=== PATIENT | male | born 1950 | race Caucasian/White ===

== ENCOUNTER 2016-01-08 05:11 | Inpatient (IN) | payer MEDICAID, OTHER ==
[~2016-01-08] VITALS: Ht 182.9 cm; Wt 63.8 kg
[~2016-01-08 05:11] MED LIST: DIVA500T35 PO; DSS100 PO; FLUP10 PO; PANT40TA25 PO
[2016-01-08] MEDS ORDERED: AMMONIA 1 EA AMP IH ONE (05:21)
[2016-01-08 05:54] LABS: BASOPHILS # (AUTO) 0.05 K/uL (0.00-0.20); BASOPHILS % (AUTO) 0.8 % (0.0-2.0); EOSINOPHILS # (AUTO) 0.22 K/uL (0.00-0.70); EOSINOPHILS % (AUTO) 3.27 % (1.0-6.0); HEMOGLOBIN 13.4 g/dL (13.5-17.5); LYMPHOCYTES % (AUTO) 43.7 % (22.0-44.0); MEAN CORPUSCULAR HEMOGLOBIN 30.1 pg (26.0-34.0); MEAN CORPUSCULAR HGB CONC 32.6 G/dL (31.0-37.0); MEAN CORPUSCULAR VOLUME 93 fL (80-100); MONOCYTES # (AUTO) 0.6 K/uL (0.1-1.0); MONOCYTES % (AUTO) 8.5 % (2.0-9.0); NEUTROPHILS % (AUTO) 43.7 % (40.0-70.0); PLATELET COUNT (AUTO) 252 K/uL (150-450); RED BLOOD CELL COUNT(AUTO) 4.43 MIL/uL (4.50-5.90); RED CELL DISTRIBUTION WIDTH 13.6 % (11.5-14.5); WHITE BLOOD COUNT (AUTO) 6.8 K/uL (4.5-11.0)
[2016-01-08 06:05] LABS: ANION GAP 7 mmol/L (8-16); CALCIUM, TOTAL 8.7 mg/dL (8.8-10.5); CARBON DIOXIDE 29 mmol/L (22-29); CHLORIDE 105 mmol/L (98-107); CREATININE 0.72 mg/dL (0.60-1.30); GLOMERULAR FILTR. RATE CALC > 60 mL/min (>60); POTASSIUM 3.8 mmol/L (3.5-5.1); SODIUM SERUM 141 mmol/L (136-145); UREA NITROGEN, BLOOD 12 mg/dL (7-18)
[2016-01-08 06:20] LABS: AMMONIA < 10 umol/L (11-32); TROPONIN I < 0.02 ng/mL (0.00-0.05)
[2016-01-08 06:31] LABS: ALANINE AMINOTRANSFERASE 15 U/L (12-78); ALBUMIN 3.4 g/dL (3.4-5.0); ASPARTATE AMINOTRANSFERASE 17 U/L (15-37); BILIRUBIN,TOTAL 0.4 mg/dL (0.1-1.0); CREATINE KINASE MB 0.7 ng/mL (0-5); CREATINE KINASE, TOTAL 88 U/L (39-308); TOTAL PROTEIN, SERUM 6.6 g/dL (6.4-8.2)
[2016-01-08] MEDS ORDERED: BACITRACIN 0.9 GM PACKET OINTMENT TP ONE (06:45)
[2016-01-08] MEDS ORDERED: PERTUSS(ACELL),DIPH,TET VAC/PF 0.5 ML VIAL IM ONE (06:45)
[2016-01-08] MEDS ORDERED: ZOLPIDEM TARTRATE 10 MG TABLET PO PRN (08:30)
[2016-01-08] MEDS: HALOPERIDOL 5 MG TABLET PO PRN (17:52)
[2016-01-08] MEDS: LORazepam 2 MG TABLET PO PRN (17:52)
[2016-01-09] MEDS: HALOPERIDOL 5 MG TABLET PO PRN ×2 (07:47→17:28)
[2016-01-09] MEDS: LORazepam 2 MG TABLET PO PRN ×2 (07:47→17:27)
[2016-01-09] MEDS: DIVALPROEX SODIUM 500 MG DR TABLET PO SCH (09:39)
[2016-01-09 17:31] VITALS: BP 136/73
[2016-01-09] MEDS: FluPHENAZine HCL 10 MG TABLET PO SCH (20:38)
[2016-01-10] MEDS: HALOPERIDOL 5 MG TABLET PO PRN ×3 (02:36→14:58)
[2016-01-10] MEDS: LORazepam 2 MG TABLET PO PRN ×3 (02:36→14:58)
[2016-01-10] MEDS ORDERED: ONDANSETRON HCL 4 MG TABLET PO PRN (07:00)
[2016-01-10] MEDS ORDERED: CloNIDine HCL 0.1 MG TABLET PO PRN (07:00)
[2016-01-10] MEDS ORDERED: ALBUTEROL SULFATE HFA 90 MCG/PUFF 8 GM INHALER IH PRN (07:00)
[2016-01-10] MEDS ORDERED: BACITRACIN 28.4 GM OINTMENT TP PRN (07:00)
[2016-01-10] MEDS ORDERED: BENZOCAINE/MENTHOL LOZENGE [8 LOZENGES/PACKET] MM PRN (07:00)
[2016-01-10] MEDS ORDERED: ACETAMINOPHEN 325 MG TABLET PO PRN (07:00)
[2016-01-10] MEDS ORDERED: MAG HYDROX/AL HYDROX/SIMETH ES 30 ML SUSPENSION UDCUP PO PRN (07:00)
[2016-01-10] MEDS ORDERED: IBUPROFEN 600 MG TABLET PO PRN (07:00)
[2016-01-10] MEDS ORDERED: PETROLATUM,WHITE 71 GM JELLY TP PRN (07:00)
[2016-01-10] MEDS ORDERED: LOPERAMIDE HCL 2 MG CAPSULE PO PRN (07:00)
[2016-01-10] MEDS: DOCUSATE SODIUM 100 MG CAPSULE PO SCH ×2 (08:26→17:00)
[2016-01-10] MEDS: DIVALPROEX SODIUM 500 MG DR TABLET PO SCH ×2 (08:27→17:00)
[2016-01-10] MEDS: PANTOPRAZOLE SODIUM 40 MG DR TABLET PO SCH (08:27)
[2016-01-10 10:35] VITALS: BP 120/84
[2016-01-10] MEDS ORDERED: HALOPERIDOL LACTATE 5 MG/ML VIAL ONE (14:57)
[2016-01-10] MEDS ORDERED: LORazepam 2 MG/ML VIAL ONE (14:57)
[2016-01-10] MEDS ORDERED: HALOPERIDOL LACTATE 5 MG/ML VIAL IM ONE (15:00)
[2016-01-10] MEDS ORDERED: LORazepam 2 MG/ML VIAL IM ONE (15:00)
[2016-01-10 16:11] VITALS: BP 119/81
[2016-01-10] MEDS: FluPHENAZine HCL 10 MG TABLET PO SCH (21:20)
[2016-01-11 08:20] VITALS: BP 121/87
[2016-01-11] MEDS: DIVALPROEX SODIUM 500 MG DR TABLET PO SCH ×2 (09:16→18:16)
[2016-01-11] MEDS: PANTOPRAZOLE SODIUM 40 MG DR TABLET PO SCH (09:16)
[2016-01-11] MEDS: DOCUSATE SODIUM 100 MG CAPSULE PO SCH ×2 (09:17→18:16)
[2016-01-11] MEDS: HALOPERIDOL 5 MG TABLET PO PRN (09:17)
[2016-01-11] MEDS: LORazepam 2 MG TABLET PO PRN (09:17)
[2016-01-11 16:11] VITALS: BP 125/78
[2016-01-11] MEDS: FluPHENAZine HCL 10 MG TABLET PO SCH (22:17)
[2016-01-12] MEDS: HALOPERIDOL 5 MG TABLET PO PRN ×2 (08:28→16:40)
[2016-01-12] MEDS: LORazepam 2 MG TABLET PO PRN (08:28)
[2016-01-12] MEDS: PANTOPRAZOLE SODIUM 40 MG DR TABLET PO SCH (08:28)
[2016-01-12] MEDS: DIVALPROEX SODIUM 500 MG DR TABLET PO SCH ×2 (08:28→16:40)
[2016-01-12] MEDS: DOCUSATE SODIUM 100 MG CAPSULE PO SCH ×2 (08:28→16:40)
[2016-01-12] MEDS: FluPHENAZine HCL 10 MG TABLET PO SCH (21:46)
[2016-01-13 08:30] VITALS: BP 120/64
[2016-01-13] MEDS: PANTOPRAZOLE SODIUM 40 MG DR TABLET PO SCH (08:45)
[2016-01-13] MEDS: DOCUSATE SODIUM 100 MG CAPSULE PO SCH ×2 (08:45→16:20)
[2016-01-13] MEDS: DIVALPROEX SODIUM 500 MG DR TABLET PO SCH ×2 (08:45→16:19)
[2016-01-13] MEDS: LORazepam 2 MG TABLET PO PRN (16:20)
[2016-01-13] MEDS: FluPHENAZine HCL 10 MG TABLET PO SCH (20:23)
[2016-01-14 08:30] VITALS: BP 117/78
[2016-01-14] MEDS: PANTOPRAZOLE SODIUM 40 MG DR TABLET PO SCH (10:19)
[2016-01-14] MEDS: DOCUSATE SODIUM 100 MG CAPSULE PO SCH ×2 (10:19→16:44)
[2016-01-14] MEDS: DIVALPROEX SODIUM 500 MG DR TABLET PO SCH ×2 (10:19→16:44)
[2016-01-14 16:37] VITALS: BP 109/66
[2016-01-14] MEDS: HALOPERIDOL 5 MG TABLET PO PRN (16:44)
[2016-01-14] MEDS: LORazepam 2 MG TABLET PO PRN (16:44)
[2016-01-14] MEDS: FluPHENAZine HCL 10 MG TABLET PO SCH (21:31)
[2016-01-15] MEDS: DIVALPROEX SODIUM 500 MG DR TABLET PO SCH ×2 (09:17→17:32)
[2016-01-15] MEDS: LORazepam 2 MG TABLET PO PRN (09:18)
[2016-01-15] MEDS: HALOPERIDOL 5 MG TABLET PO PRN (09:18)
[2016-01-15] MEDS: PANTOPRAZOLE SODIUM 40 MG DR TABLET PO SCH (09:18)
[2016-01-15] MEDS: DOCUSATE SODIUM 100 MG CAPSULE PO SCH ×2 (09:18→17:31)
[2016-01-15 09:20] VITALS: BP 116/71
[2016-01-15 16:00] VITALS: BP 118/73
[2016-01-15] MEDS: FluPHENAZine HCL 10 MG TABLET PO SCH (20:20)
[2016-01-16] MEDS: PANTOPRAZOLE SODIUM 40 MG DR TABLET PO SCH (08:52)
[2016-01-16] MEDS: DOCUSATE SODIUM 100 MG CAPSULE PO SCH ×3 (08:52→17:00)
[2016-01-16] MEDS: DIVALPROEX SODIUM 500 MG DR TABLET PO SCH ×3 (08:52→17:00)
[2016-01-16] MEDS: LORazepam 2 MG TABLET PO PRN (17:02)
[2016-01-16] MEDS: FluPHENAZine HCL 10 MG TABLET PO SCH (21:23)
[2016-01-17] MEDS: DOCUSATE SODIUM 100 MG CAPSULE PO SCH ×2 (10:14→16:52)
[2016-01-17] MEDS: DIVALPROEX SODIUM 500 MG DR TABLET PO SCH ×2 (10:15→16:51)
[2016-01-17] MEDS: PANTOPRAZOLE SODIUM 40 MG DR TABLET PO SCH (10:15)
[2016-01-17 15:01] VITALS: BP 108/64
[2016-01-17] MEDS: FluPHENAZine HCL 5 MG TABLET PO SCH (20:10)
[2016-01-18 08:03] VITALS: BP 96/81
[2016-01-18] MEDS: DOCUSATE SODIUM 100 MG CAPSULE PO SCH ×2 (08:56→17:00)
[2016-01-18] MEDS: PANTOPRAZOLE SODIUM 40 MG DR TABLET PO SCH (08:56)
[2016-01-18] MEDS: DIVALPROEX SODIUM 500 MG DR TABLET PO SCH ×2 (08:56→17:00)
[2016-01-18 17:07] VITALS: BP 119/74
[2016-01-18] MEDS: HALOPERIDOL LACTATE 5 MG/ML VIAL IM PRN (20:40)
[2016-01-18] MEDS: FluPHENAZine HCL 5 MG TABLET PO SCH (20:50)
[2016-01-19 08:02] VITALS: BP 136/76
[2016-01-19] MEDS: PANTOPRAZOLE SODIUM 40 MG DR TABLET PO SCH (09:00)
[2016-01-19] MEDS: DOCUSATE SODIUM 100 MG CAPSULE PO SCH ×2 (09:00→17:43)
[2016-01-19] MEDS: DIVALPROEX SODIUM 500 MG DR TABLET PO SCH ×2 (09:00→17:44)
[2016-01-19 17:57] VITALS: BP 103/82
[2016-01-19] MEDS: FluPHENAZine HCL 5 MG TABLET PO SCH (20:32)
[2016-01-20 08:02] VITALS: BP 102/71
[2016-01-20] MEDS: DOCUSATE SODIUM 100 MG CAPSULE PO SCH ×2 (09:26→16:36)
[2016-01-20] MEDS: PANTOPRAZOLE SODIUM 40 MG DR TABLET PO SCH (09:26)
[2016-01-20] MEDS: DIVALPROEX SODIUM 500 MG DR TABLET PO SCH ×2 (09:27→16:36)
[2016-01-20] MEDS: FluPHENAZine HCL 5 MG TABLET PO SCH (21:33)
[2016-01-21 08:02] VITALS: BP 117/63
[2016-01-21] MEDS: PANTOPRAZOLE SODIUM 40 MG DR TABLET PO SCH (09:57)
[2016-01-21] MEDS: DOCUSATE SODIUM 100 MG CAPSULE PO SCH ×2 (09:57→17:00)
[2016-01-21] MEDS: DIVALPROEX SODIUM 500 MG DR TABLET PO SCH ×2 (09:57→17:00)
[2016-01-21] MEDS ORDERED: LORazepam 2 MG/ML VIAL ONE (16:06)
[2016-01-21] MEDS ORDERED: DiphenhydrAMINE HCL 50 MG/ML VIAL ONE (16:06)
[2016-01-21] MEDS ORDERED: HALOPERIDOL LACTATE 5 MG/ML VIAL IM ONE (16:15)
[2016-01-21] MEDS ORDERED: DiphenhydrAMINE HCL 50 MG/ML VIAL IM ONE ×2 (16:15→16:30)
[2016-01-21] MEDS ORDERED: LORazepam 2 MG/ML VIAL IM ONE ×2 (16:15→16:30)
[2016-01-21] MEDS: FluPHENAZine HCL 5 MG TABLET PO SCH (21:00)
[2016-01-22] MEDS: DIVALPROEX SODIUM 500 MG DR TABLET PO SCH ×2 (09:57→17:31)
[2016-01-22] MEDS: PANTOPRAZOLE SODIUM 40 MG DR TABLET PO SCH (09:57)
[2016-01-22] MEDS: DOCUSATE SODIUM 100 MG CAPSULE PO SCH ×2 (09:57→17:31)
[2016-01-22 10:24] VITALS: BP 114/70
[2016-01-22] MEDS: FluPHENAZine HCL 5 MG TABLET PO SCH (21:21)
[2016-01-23] MEDS: DOCUSATE SODIUM 100 MG CAPSULE PO SCH ×2 (09:00→17:00)
[2016-01-23] MEDS: DIVALPROEX SODIUM 500 MG DR TABLET PO SCH (09:00)
[2016-01-23] MEDS: PANTOPRAZOLE SODIUM 40 MG DR TABLET PO SCH (09:00)
[2016-01-23] MEDS ORDERED: LORazepam 2 MG/ML VIAL ONE (15:10)
[2016-01-23] MEDS ORDERED: DiphenhydrAMINE HCL 50 MG/ML VIAL ONE (15:10)
[2016-01-23] MEDS ORDERED: DiphenhydrAMINE HCL 50 MG/ML VIAL IM ONE (15:15)
[2016-01-23] MEDS ORDERED: HALOPERIDOL LACTATE 5 MG/ML VIAL IM ONE (15:15)
[2016-01-23] MEDS ORDERED: LORazepam 2 MG/ML VIAL IM ONE (15:15)
[2016-01-23] MEDS: VALPROIC ACID 250 MG/5 ML SYRUP UDCUP PO SCH (17:00)
[2016-01-23] MEDS: FluPHENAZine HCL 5 MG TABLET PO SCH (20:36)
[2016-01-24 08:00] VITALS: BP 103/74
[2016-01-24] MEDS: PANTOPRAZOLE SODIUM 40 MG DR TABLET PO SCH (08:23)
[2016-01-24] MEDS: LORazepam 2 MG TABLET PO PRN (08:23)
[2016-01-24] MEDS: HALOPERIDOL 5 MG TABLET PO PRN (08:23)
[2016-01-24] MEDS: DOCUSATE SODIUM 100 MG CAPSULE PO SCH ×2 (08:23→17:00)
[2016-01-24] MEDS: VALPROIC ACID 250 MG/5 ML SYRUP UDCUP PO SCH ×2 (09:00→17:00)
[2016-01-24] MEDS: FluPHENAZine HCL 5 MG TABLET PO SCH (21:54)
[2016-01-25] MEDS: VALPROIC ACID 250 MG/5 ML SYRUP UDCUP PO SCH ×2 (09:00→17:00)
[2016-01-25] MEDS: PANTOPRAZOLE SODIUM 40 MG DR TABLET PO SCH (09:00)
[2016-01-25] MEDS: DOCUSATE SODIUM 100 MG CAPSULE PO SCH ×2 (09:00→17:00)
[2016-01-25] MEDS: FluPHENAZine HCL 5 MG TABLET PO SCH (21:10)
[2016-01-26] MEDS: DOCUSATE SODIUM 100 MG CAPSULE PO SCH ×2 (08:34→17:00)
[2016-01-26] MEDS: LORazepam 2 MG TABLET PO PRN (08:34)
[2016-01-26] MEDS: HALOPERIDOL 5 MG TABLET PO PRN (08:34)
[2016-01-26] MEDS: VALPROIC ACID 250 MG/5 ML SYRUP UDCUP PO SCH ×2 (08:34→17:00)
[2016-01-26] MEDS: PANTOPRAZOLE SODIUM 40 MG DR TABLET PO SCH (08:34)
[2016-01-26 09:35] VITALS: BP 134/85
[2016-01-26] MEDS: FluPHENAZine HCL 5 MG TABLET PO SCH (21:36)
[2016-01-27] MEDS: VALPROIC ACID 250 MG/5 ML SYRUP UDCUP PO SCH ×2 (09:00→17:00)
[2016-01-27] MEDS: PANTOPRAZOLE SODIUM 40 MG DR TABLET PO SCH (09:00)
[2016-01-27] MEDS: DOCUSATE SODIUM 100 MG CAPSULE PO SCH ×2 (09:00→17:00)
[2016-01-27 09:29] VITALS: BP 132/98
[2016-01-27] MEDS: FluPHENAZine HCL 5 MG TABLET PO SCH (21:00)
[2016-01-27] MEDS: HALOPERIDOL LACTATE 5 MG/ML VIAL IM PRN (21:42)
[2016-01-28] MEDS: VALPROIC ACID 250 MG/5 ML SYRUP UDCUP PO SCH ×2 (07:51→17:00)
[2016-01-28] MEDS: DOCUSATE SODIUM 100 MG CAPSULE PO SCH ×2 (07:51→17:00)
[2016-01-28] MEDS: PANTOPRAZOLE SODIUM 40 MG DR TABLET PO SCH (07:52)
[2016-01-28 13:37] VITALS: BP 128/65
[2016-01-28] MEDS: FluPHENAZine HCL 5 MG TABLET PO SCH (21:00)
[2016-01-28] MEDS: HALOPERIDOL LACTATE 5 MG/ML VIAL IM PRN (21:58)
[2016-01-29] MEDS: PANTOPRAZOLE SODIUM 40 MG DR TABLET PO SCH (09:57)
[2016-01-29] MEDS: DOCUSATE SODIUM 100 MG CAPSULE PO SCH ×2 (09:57→17:00)
[2016-01-29] MEDS: VALPROIC ACID 250 MG/5 ML SYRUP UDCUP PO SCH ×2 (09:59→17:00)
[2016-01-29] MEDS: FluPHENAZine HCL 5 MG TABLET PO SCH (21:38)
[2016-01-30] MEDS: DOCUSATE SODIUM 100 MG CAPSULE PO SCH ×2 (09:14→17:00)
[2016-01-30] MEDS: PANTOPRAZOLE SODIUM 40 MG DR TABLET PO SCH (09:14)
[2016-01-30] MEDS: VALPROIC ACID 250 MG/5 ML SYRUP UDCUP PO SCH ×2 (09:14→17:00)
[2016-01-30] MEDS: HALOPERIDOL LACTATE 5 MG/ML VIAL IM PRN (20:55)
[2016-01-30] MEDS: FluPHENAZine HCL 10 MG TABLET PO SCH (20:55)
[2016-01-31] MEDS: VALPROIC ACID 250 MG/5 ML SYRUP UDCUP PO SCH ×2 (10:22→17:00)
[2016-01-31] MEDS: DOCUSATE SODIUM 100 MG CAPSULE PO SCH ×2 (10:22→17:00)
[2016-01-31] MEDS: PANTOPRAZOLE SODIUM 40 MG DR TABLET PO SCH (10:22)
[2016-01-31] MEDS: FluPHENAZine HCL 10 MG TABLET PO SCH (21:42)
[2016-02-01] MEDS: DOCUSATE SODIUM 100 MG CAPSULE PO SCH ×2 (08:45→17:00)
[2016-02-01] MEDS: PANTOPRAZOLE SODIUM 40 MG DR TABLET PO SCH (08:45)
[2016-02-01] MEDS: VALPROIC ACID 250 MG/5 ML SYRUP UDCUP PO SCH ×2 (08:45→17:00)
[2016-02-01 09:06] VITALS: BP 118/54
[2016-02-01] MEDS: FluPHENAZine HCL 10 MG TABLET PO SCH (21:21)
[2016-02-02] MEDS: DOCUSATE SODIUM 100 MG CAPSULE PO SCH ×2 (08:07→17:00)
[2016-02-02] MEDS: PANTOPRAZOLE SODIUM 40 MG DR TABLET PO SCH (08:07)
[2016-02-02] MEDS ORDERED: CloZAPine 25 MG TABLET PO SCH (09:00)
[2016-02-02] MEDS: VALPROIC ACID 250 MG/5 ML SYRUP UDCUP PO SCH ×2 (09:00→17:00)
[2016-02-02 11:04] LABS: BASOPHILS % (AUTO) 0.7 % (0.0-2.0); EOSINOPHILS % (AUTO) 3.5 % (1.0-6.0); HEMATOCRIT 38.2 % (41-53); HEMOGLOBIN 12.5 g/dL (13.5-17.5); LYMPHOCYTES # (AUTO) 2.4 K/uL (1.0-4.8); LYMPHOCYTES % (AUTO) 32.8 % (22.0-44.0); MEAN CORPUSCULAR HEMOGLOBIN 29.7 pg (26.0-34.0); MEAN CORPUSCULAR HGB CONC 32.7 G/dL (31.0-37.0); MEAN CORPUSCULAR VOLUME 91 fL (80-100); MONOCYTES # (AUTO) 0.6 K/uL (0.1-1.0); NEUTROPHILS # (AUTO) 3.9 K/uL (1.8-7.7); PLATELET COUNT (AUTO) 294 K/uL (150-450); RED CELL DISTRIBUTION WIDTH 14.1 % (11.5-14.5); WHITE BLOOD COUNT (AUTO) 7.2 K/uL (4.5-11.0)
[2016-02-02] MEDS: FluPHENAZine HCL 10 MG TABLET PO SCH (22:22)
[2016-02-03] MEDS ORDERED: CloZAPine 25 MG TABLET PO SCH ×2 (09:00→21:00)
[2016-02-03] MEDS: VALPROIC ACID 250 MG/5 ML SYRUP UDCUP PO SCH ×2 (09:00→17:00)
[2016-02-03] MEDS: DOCUSATE SODIUM 100 MG CAPSULE PO SCH ×2 (09:41→17:27)
[2016-02-03] MEDS: PANTOPRAZOLE SODIUM 40 MG DR TABLET PO SCH (09:43)
[2016-02-03] MEDS: FluPHENAZine HCL 10 MG TABLET PO SCH (21:49)
[2016-02-04] MEDS ORDERED: CloZAPine 25 MG TABLET PO SCH ×2 (09:00→21:00)
[2016-02-04] MEDS: VALPROIC ACID 250 MG/5 ML SYRUP UDCUP PO SCH ×2 (09:00→17:00)
[2016-02-04] MEDS: PANTOPRAZOLE SODIUM 40 MG DR TABLET PO SCH (09:38)
[2016-02-04] MEDS: DOCUSATE SODIUM 100 MG CAPSULE PO SCH ×2 (09:39→17:00)
[2016-02-04] MEDS: FluPHENAZine HCL 10 MG TABLET PO SCH (21:39)
[2016-02-05] MEDS: CloZAPine 25 MG TABLET PO SCH ×2 (08:12→20:42)
[2016-02-05] MEDS: DOCUSATE SODIUM 100 MG CAPSULE PO SCH ×2 (08:12→17:00)
[2016-02-05] MEDS: PANTOPRAZOLE SODIUM 40 MG DR TABLET PO SCH (08:13)
[2016-02-05] MEDS: VALPROIC ACID 250 MG/5 ML SYRUP UDCUP PO SCH ×2 (08:13→17:00)
[2016-02-05] MEDS: LORazepam 2 MG TABLET PO PRN (08:14)
[2016-02-05] MEDS: HALOPERIDOL 5 MG TABLET PO PRN (08:14)
[2016-02-05] MEDS: FluPHENAZine HCL 10 MG TABLET PO SCH (20:42)
[2016-02-06] MEDS: VALPROIC ACID 250 MG/5 ML SYRUP UDCUP PO SCH ×2 (10:32→17:00)
[2016-02-06] MEDS: DOCUSATE SODIUM 100 MG CAPSULE PO SCH ×2 (10:33→17:00)
[2016-02-06] MEDS: PANTOPRAZOLE SODIUM 40 MG DR TABLET PO SCH (10:33)
[2016-02-06] MEDS: CloZAPine 25 MG TABLET PO SCH ×2 (10:33→21:56)
[2016-02-06] MEDS: FluPHENAZine HCL 10 MG TABLET PO SCH (21:56)
[2016-02-07] MEDS ORDERED: LORazepam 2 MG/ML VIAL ONE (01:56)
[2016-02-07] MEDS ORDERED: DiphenhydrAMINE HCL 50 MG/ML VIAL ONE (01:58)
[2016-02-07] MEDS ORDERED: HALOPERIDOL LACTATE 5 MG/ML VIAL IM ONE (02:00)
[2016-02-07] MEDS ORDERED: DiphenhydrAMINE HCL 50 MG/ML VIAL IM ONE (02:00)
[2016-02-07] MEDS ORDERED: LORazepam 2 MG/ML VIAL IM ONE (02:00)
[2016-02-07 02:24] VITALS: BP 104/68
[2016-02-07] MEDS ORDERED: CloZAPine 25 MG TABLET PO SCH (09:00)
[2016-02-07] MEDS: VALPROIC ACID 250 MG/5 ML SYRUP UDCUP PO SCH ×2 (09:00→17:00)
[2016-02-07] MEDS: DOCUSATE SODIUM 100 MG CAPSULE PO SCH ×2 (10:28→17:00)
[2016-02-07] MEDS: HALOPERIDOL 5 MG TABLET PO PRN (10:29)
[2016-02-07] MEDS: LORazepam 2 MG TABLET PO PRN (10:29)
[2016-02-07] MEDS: PANTOPRAZOLE SODIUM 40 MG DR TABLET PO SCH (10:29)
[2016-02-07] MEDS: FluPHENAZine HCL 10 MG TABLET PO SCH (21:00)
[2016-02-07] MEDS ORDERED: CloZAPine 100 MG TABLET PO SCH (21:00)
[2016-02-07] MEDS: HALOPERIDOL LACTATE 5 MG/ML VIAL IM PRN (21:28)
[2016-02-08] MEDS: DOCUSATE SODIUM 100 MG CAPSULE PO SCH ×2 (09:00→17:00)
[2016-02-08] MEDS: PANTOPRAZOLE SODIUM 40 MG DR TABLET PO SCH (09:00)
[2016-02-08] MEDS ORDERED: CloZAPine 25 MG TABLET PO SCH (09:00)
[2016-02-08] MEDS: VALPROIC ACID 250 MG/5 ML SYRUP UDCUP PO SCH ×2 (09:00→17:00)
[2016-02-08 13:36] LABS: APPEARANCE,URINE CLEAR (CLEAR); GLUCOSE, URINE (UA) NEGATIVE (NEGATIVE); KETONES,URINE NEGATIVE (NEGATIVE); LEUKOCYTE ESTERASE ,URINE NEGATIVE (NEGATIVE); OCCULT BLOOD,URINE NEGATIVE (NEGATIVE); PROTEIN,URINE NEGATIVE (NEGATIVE)
[2016-02-08 13:37] LABS: ADD UA MICROSCOPIC NO
[2016-02-08] MEDS: FluPHENAZine HCL 10 MG TABLET PO SCH (20:56)
[2016-02-08] MEDS ORDERED: CloZAPine 100 MG TABLET PO SCH (21:00)
[2016-02-08] MEDS: HALOPERIDOL LACTATE 5 MG/ML VIAL IM PRN (21:00)
[2016-02-09] MEDS: VALPROIC ACID 250 MG/5 ML SYRUP UDCUP PO SCH ×2 (08:57→16:58)
[2016-02-09] MEDS: DOCUSATE SODIUM 100 MG CAPSULE PO SCH ×2 (08:58→16:58)
[2016-02-09] MEDS: PANTOPRAZOLE SODIUM 40 MG DR TABLET PO SCH (08:59)
[2016-02-09] MEDS ORDERED: CloZAPine 25 MG TABLET PO SCH (09:00)
[2016-02-09 10:02] LABS: BASOPHILS % (AUTO) 0.6 % (0.0-2.0); EOSINOPHILS % (AUTO) 2.2 % (1.0-6.0); HEMATOCRIT 38.3 % (41-53); HEMOGLOBIN 12.7 g/dL (13.5-17.5); LYMPHOCYTES # (AUTO) 1.9 K/uL (1.0-4.8); MEAN CORPUSCULAR HEMOGLOBIN 29.5 pg (26.0-34.0); MEAN CORPUSCULAR VOLUME 89 fL (80-100); MONOCYTES # (AUTO) 0.7 K/uL (0.1-1.0); MONOCYTES % (AUTO) 8.8 % (2.0-9.0); NEUTROPHILS # (AUTO) 5.6 K/uL (1.8-7.7); NEUTROPHILS % (AUTO) 66.4 % (40.0-70.0); PLATELET COUNT (AUTO) 345 K/uL (150-450); RED BLOOD CELL COUNT(AUTO) 4.28 MIL/uL (4.50-5.90); RED CELL DISTRIBUTION WIDTH 13.6 % (11.5-14.5); WHITE BLOOD COUNT (AUTO) 8.5 K/uL (4.5-11.0)
[2016-02-09] MEDS ORDERED: CloZAPine 100 MG TABLET PO SCH (21:00)
[2016-02-09] MEDS: FluPHENAZine HCL 10 MG TABLET PO SCH (21:00)
[2016-02-09] MEDS: HALOPERIDOL LACTATE 5 MG/ML VIAL IM PRN (22:44)
[2016-02-10] MEDS: PANTOPRAZOLE SODIUM 40 MG DR TABLET PO SCH (12:13)
[2016-02-10] MEDS: CloZAPine 100 MG TABLET PO SCH ×2 (12:13→21:00)
[2016-02-10] MEDS: DOCUSATE SODIUM 100 MG CAPSULE PO SCH ×2 (12:13→17:00)
[2016-02-10] MEDS: VALPROIC ACID 250 MG/5 ML SYRUP UDCUP PO SCH ×2 (12:14→17:00)
[2016-02-10] MEDS: FluPHENAZine HCL 10 MG TABLET PO SCH (21:00)
[2016-02-10] MEDS: HALOPERIDOL LACTATE 5 MG/ML VIAL IM PRN (21:34)
[2016-02-11] MEDS: DOCUSATE SODIUM 100 MG CAPSULE PO SCH ×2 (08:55→16:25)
[2016-02-11] MEDS: PANTOPRAZOLE SODIUM 40 MG DR TABLET PO SCH (08:55)
[2016-02-11] MEDS: CloZAPine 100 MG TABLET PO SCH ×2 (08:55→21:09)
[2016-02-11] MEDS: VALPROIC ACID 250 MG/5 ML SYRUP UDCUP PO SCH ×2 (09:00→16:25)
[2016-02-11] MEDS: MAGNESIUM HYDROXIDE SUSPENSION 30 ML UDCUP PO PRN (14:28)
[2016-02-11] MEDS: FluPHENAZine HCL 10 MG TABLET PO SCH (21:10)
[2016-02-12] MEDS ORDERED: CloZAPine 25 MG TABLET PO SCH (09:00)
[2016-02-12] MEDS: DOCUSATE SODIUM 100 MG CAPSULE PO SCH ×2 (09:20→17:45)
[2016-02-12] MEDS: PANTOPRAZOLE SODIUM 40 MG DR TABLET PO SCH (09:20)
[2016-02-12] MEDS: VALPROIC ACID 250 MG/5 ML SYRUP UDCUP PO SCH ×2 (09:21→17:45)
[2016-02-12] MEDS ORDERED: CloZAPine 100 MG TABLET PO SCH (21:00)
[2016-02-12] MEDS: FluPHENAZine HCL 10 MG TABLET PO SCH (21:42)
[2016-02-13] MEDS: VALPROIC ACID 250 MG/5 ML SYRUP UDCUP PO SCH ×2 (09:00→17:49)
[2016-02-13] MEDS ORDERED: CloZAPine 25 MG TABLET PO SCH (09:00)
[2016-02-13] MEDS: PANTOPRAZOLE SODIUM 40 MG DR TABLET PO SCH (09:00)
[2016-02-13] MEDS: DOCUSATE SODIUM 100 MG CAPSULE PO SCH ×2 (09:00→17:49)
[2016-02-13] MEDS ORDERED: CloZAPine 100 MG TABLET PO SCH (21:00)
[2016-02-13] MEDS: FluPHENAZine HCL 10 MG TABLET PO SCH (22:09)
[2016-02-14] MEDS: VALPROIC ACID 250 MG/5 ML SYRUP UDCUP PO SCH ×2 (09:00→17:00)
[2016-02-14] MEDS: CloZAPine 100 MG TABLET PO SCH ×2 (10:25→20:06)
[2016-02-14] MEDS: PANTOPRAZOLE SODIUM 40 MG DR TABLET PO SCH (10:35)
[2016-02-14] MEDS: DOCUSATE SODIUM 100 MG CAPSULE PO SCH ×2 (10:35→17:00)
[2016-02-14] MEDS: FluPHENAZine HCL 10 MG TABLET PO SCH (20:06)
[2016-02-15] MEDS: VALPROIC ACID 250 MG/5 ML SYRUP UDCUP PO SCH ×3 (09:00→17:43)
[2016-02-15] MEDS: DOCUSATE SODIUM 100 MG CAPSULE PO SCH ×3 (09:14→17:43)
[2016-02-15] MEDS: CloZAPine 100 MG TABLET PO SCH ×3 (09:14→20:48)
[2016-02-15] MEDS: PANTOPRAZOLE SODIUM 40 MG DR TABLET PO SCH ×2 (09:14→09:59)
[2016-02-15] MEDS: FluPHENAZine HCL 10 MG TABLET PO SCH (20:48)
[2016-02-16 07:44] LABS: BASOPHILS % (AUTO) 0.6 % (0.0-2.0); EOSINOPHILS % (AUTO) 4.4 % (1.0-6.0); HEMATOCRIT 38.1 % (41-53); HEMOGLOBIN 12.5 g/dL (13.5-17.5); LYMPHOCYTES # (AUTO) 2.7 K/uL (1.0-4.8); LYMPHOCYTES % (AUTO) 32.2 % (22.0-44.0); MEAN CORPUSCULAR HEMOGLOBIN 29.5 pg (26.0-34.0); MEAN CORPUSCULAR HGB CONC 32.9 G/dL (31.0-37.0); MEAN CORPUSCULAR VOLUME 90 fL (80-100); MONOCYTES # (AUTO) 0.6 K/uL (0.1-1.0); MONOCYTES % (AUTO) 6.5 % (2.0-9.0); NEUTROPHILS # (AUTO) 4.8 K/uL (1.8-7.7); NEUTROPHILS % (AUTO) 56.3 % (40.0-70.0); PLATELET COUNT (AUTO) 366 K/uL (150-450); RED BLOOD CELL COUNT(AUTO) 4.24 MIL/uL (4.50-5.90); RED CELL DISTRIBUTION WIDTH 13.4 % (11.5-14.5); WHITE BLOOD COUNT (AUTO) 8.5 K/uL (4.5-11.0)
[2016-02-16] MEDS: VALPROIC ACID 250 MG/5 ML SYRUP UDCUP PO SCH ×2 (09:00→17:00)
[2016-02-16] MEDS: DOCUSATE SODIUM 100 MG CAPSULE PO SCH ×2 (09:04→17:00)
[2016-02-16] MEDS: CloZAPine 100 MG TABLET PO SCH ×2 (09:04→22:16)
[2016-02-16] MEDS: PANTOPRAZOLE SODIUM 40 MG DR TABLET PO SCH (09:05)
[2016-02-16 16:24] VITALS: BP 125/76
[2016-02-16] MEDS: FluPHENAZine HCL 10 MG TABLET PO SCH (22:16)
[2016-02-17] MEDS: DOCUSATE SODIUM 100 MG CAPSULE PO SCH ×2 (08:44→17:30)
[2016-02-17] MEDS: PANTOPRAZOLE SODIUM 40 MG DR TABLET PO SCH (08:45)
[2016-02-17] MEDS: CloZAPine 100 MG TABLET PO SCH ×2 (08:45→21:01)
[2016-02-17] MEDS: VALPROIC ACID 250 MG/5 ML SYRUP UDCUP PO SCH ×2 (08:59→17:30)
[2016-02-17] MEDS: FluPHENAZine HCL 10 MG TABLET PO SCH (21:00)
[2016-02-17] MEDS: HALOPERIDOL LACTATE 5 MG/ML VIAL IM PRN (21:01)
[2016-02-18] MEDS: VALPROIC ACID 250 MG/5 ML SYRUP UDCUP PO SCH ×2 (09:00→17:41)
[2016-02-18] MEDS: PANTOPRAZOLE SODIUM 40 MG DR TABLET PO SCH (09:26)
[2016-02-18] MEDS: DOCUSATE SODIUM 100 MG CAPSULE PO SCH ×2 (09:26→17:42)
[2016-02-18] MEDS: CloZAPine 100 MG TABLET PO SCH ×2 (09:26→21:00)
[2016-02-18] MEDS: FluPHENAZine HCL 10 MG TABLET PO SCH (21:00)
[2016-02-18] MEDS: HALOPERIDOL LACTATE 5 MG/ML VIAL IM PRN (21:08)
[2016-02-19] MEDS: VALPROIC ACID 250 MG/5 ML SYRUP UDCUP PO SCH ×2 (09:06→17:00)
[2016-02-19] MEDS: PANTOPRAZOLE SODIUM 40 MG DR TABLET PO SCH (09:06)
[2016-02-19] MEDS: CloZAPine 100 MG TABLET PO SCH ×2 (09:06→21:00)
[2016-02-19] MEDS: DOCUSATE SODIUM 100 MG CAPSULE PO SCH ×2 (09:06→17:00)
[2016-02-19] MEDS: HALOPERIDOL LACTATE 5 MG/ML VIAL IM PRN (20:10)
[2016-02-19] MEDS: FluPHENAZine HCL 10 MG TABLET PO SCH (21:00)
[2016-02-20] MEDS: CloZAPine 100 MG TABLET PO SCH ×2 (09:38→21:00)
[2016-02-20] MEDS: DOCUSATE SODIUM 100 MG CAPSULE PO SCH ×3 (09:38→17:30)
[2016-02-20] MEDS: VALPROIC ACID 250 MG/5 ML SYRUP UDCUP PO SCH ×2 (09:38→17:00)
[2016-02-20] MEDS: PANTOPRAZOLE SODIUM 40 MG DR TABLET PO SCH (09:38)
[2016-02-20] MEDS: FluPHENAZine HCL 10 MG TABLET PO SCH (21:00)
[2016-02-20] MEDS: HALOPERIDOL LACTATE 5 MG/ML VIAL IM PRN (22:29)
[2016-02-21] MEDS: PANTOPRAZOLE SODIUM 40 MG DR TABLET PO SCH (08:53)
[2016-02-21] MEDS: CloZAPine 100 MG TABLET PO SCH (08:53)
[2016-02-21] MEDS: DOCUSATE SODIUM 100 MG CAPSULE PO SCH ×2 (08:53→17:39)
[2016-02-21] MEDS: VALPROIC ACID 250 MG/5 ML SYRUP UDCUP PO SCH ×2 (08:53→09:00)
[2016-02-21 12:22] LABS: CLOZAPINE 128 ng/mL (350-650); CLOZAPINE & NORCLOZAPINE 152 ng/mL; NORCLOZAPINE 24 ng/mL (Not Estab.)
[2016-02-21] MEDS: DIVALPROEX SODIUM 500 MG DR TABLET PO SCH (17:39)
[2016-02-21 18:13] VITALS: BP 116/72
[2016-02-21] MEDS: FluPHENAZine HCL 10 MG TABLET PO SCH (20:25)
[2016-02-21] MEDS: CloZAPine 100 MG RAPDIS TABLET PO SCH (20:25)
[2016-02-22 06:15] LABS: ANION GAP 4 mmol/L (8-16); CARBON DIOXIDE 34 mmol/L (22-29); CHLORIDE 104 mmol/L (98-107); CREATININE 0.66 mg/dL (0.60-1.30); GLOMERULAR FILTR. RATE CALC > 60 mL/min (>60); POTASSIUM 4.8 mmol/L (3.5-5.1); SODIUM SERUM 142 mmol/L (136-145); UREA NITROGEN, BLOOD 19 mg/dL (7-18)
[2016-02-22 06:26] LABS: IRON, SERUM 48 mcg/dL (50-175); TOTAL IRON BINDING CAPACITY 259 mcg/dL (250-450)
[2016-02-22] MEDS: MULTIVITAMINS WITH MINERALS, THERAPEUTIC TABLET PO SCH (08:49)
[2016-02-22] MEDS: PANTOPRAZOLE SODIUM 40 MG DR TABLET PO SCH (08:50)
[2016-02-22] MEDS: DOCUSATE SODIUM 100 MG CAPSULE PO SCH ×2 (08:50→18:05)
[2016-02-22] MEDS: DIVALPROEX SODIUM 500 MG DR TABLET PO SCH ×2 (08:50→18:05)
[2016-02-22] MEDS: CloZAPine 100 MG RAPDIS TABLET PO SCH ×2 (08:50→21:05)
[2016-02-22] MEDS: FluPHENAZine HCL 10 MG TABLET PO SCH (21:05)
[2016-02-23] MEDS: HALOPERIDOL 5 MG TABLET PO PRN (09:33)
[2016-02-23] MEDS: DIVALPROEX SODIUM 500 MG DR TABLET PO SCH ×2 (09:33→16:54)
[2016-02-23] MEDS: PANTOPRAZOLE SODIUM 40 MG DR TABLET PO SCH (09:33)
[2016-02-23] MEDS: DOCUSATE SODIUM 100 MG CAPSULE PO SCH ×2 (09:33→16:54)
[2016-02-23] MEDS: MULTIVITAMINS WITH MINERALS, THERAPEUTIC TABLET PO SCH (09:33)
[2016-02-23] MEDS: CloZAPine 100 MG RAPDIS TABLET PO SCH ×2 (09:34→22:18)
[2016-02-23 16:31] LABS: BASOPHILS % (AUTO) 1.7 % (0.0-2.0); EOSINOPHILS % (AUTO) 1.9 % (1.0-6.0); HEMATOCRIT 36.9 % (41-53); HEMOGLOBIN 11.9 g/dL (13.5-17.5); LYMPHOCYTES # (AUTO) 2.7 K/uL (1.0-4.8); LYMPHOCYTES % (AUTO) 35.6 % (22.0-44.0); MEAN CORPUSCULAR HEMOGLOBIN 28.7 pg (26.0-34.0); MEAN CORPUSCULAR HGB CONC 32.2 G/dL (31.0-37.0); MEAN CORPUSCULAR VOLUME 89 fL (80-100); MONOCYTES # (AUTO) 0.5 K/uL (0.1-1.0); MONOCYTES % (AUTO) 7.1 % (2.0-9.0); NEUTROPHILS % (AUTO) 53.7 % (40.0-70.0); PLATELET COUNT (AUTO) 305 K/uL (150-450); RED BLOOD CELL COUNT(AUTO) 4.13 MIL/uL (4.50-5.90); RED CELL DISTRIBUTION WIDTH 13.7 % (11.5-14.5); WHITE BLOOD COUNT (AUTO) 7.5 K/uL (4.5-11.0)
[2016-02-23] MEDS: FluPHENAZine HCL 10 MG TABLET PO SCH (22:18)
[2016-02-24] MEDS: HALOPERIDOL 5 MG TABLET PO PRN (09:59)
[2016-02-24] MEDS: CloZAPine 100 MG RAPDIS TABLET PO SCH ×2 (09:59→20:32)
[2016-02-24] MEDS: DIVALPROEX SODIUM 500 MG DR TABLET PO SCH ×2 (09:59→17:55)
[2016-02-24] MEDS: DOCUSATE SODIUM 100 MG CAPSULE PO SCH ×2 (09:59→17:55)
[2016-02-24] MEDS: MULTIVITAMINS WITH MINERALS, THERAPEUTIC TABLET PO SCH (09:59)
[2016-02-24] MEDS: PANTOPRAZOLE SODIUM 40 MG DR TABLET PO SCH (09:59)
[2016-02-24] MEDS: FluPHENAZine HCL 10 MG TABLET PO SCH (20:32)
[2016-02-25] MEDS: HALOPERIDOL 5 MG TABLET PO PRN (09:41)
[2016-02-25] MEDS: DIVALPROEX SODIUM 500 MG DR TABLET PO SCH ×2 (09:41→17:48)
[2016-02-25] MEDS: PANTOPRAZOLE SODIUM 40 MG DR TABLET PO SCH (09:41)
[2016-02-25] MEDS: CloZAPine 100 MG RAPDIS TABLET PO SCH ×2 (09:41→21:00)
[2016-02-25] MEDS: MULTIVITAMINS WITH MINERALS, THERAPEUTIC TABLET PO SCH (09:41)
[2016-02-25] MEDS: DOCUSATE SODIUM 100 MG CAPSULE PO SCH ×2 (09:42→17:48)
[2016-02-25] MEDS: FluPHENAZine HCL 10 MG TABLET PO SCH (20:58)
[2016-02-26] MEDS: CloZAPine 100 MG RAPDIS TABLET PO SCH ×2 (08:43→21:27)
[2016-02-26] MEDS: DIVALPROEX SODIUM 500 MG DR TABLET PO SCH ×2 (08:44→17:29)
[2016-02-26] MEDS: DOCUSATE SODIUM 100 MG CAPSULE PO SCH ×2 (08:44→17:29)
[2016-02-26] MEDS: MULTIVITAMINS WITH MINERALS, THERAPEUTIC TABLET PO SCH (08:45)
[2016-02-26] MEDS: PANTOPRAZOLE SODIUM 40 MG DR TABLET PO SCH (08:45)
[2016-02-26] MEDS: FluPHENAZine HCL 10 MG TABLET PO SCH (21:27)
[2016-02-27] MEDS: MULTIVITAMINS WITH MINERALS, THERAPEUTIC TABLET PO SCH (08:51)
[2016-02-27] MEDS: DIVALPROEX SODIUM 500 MG DR TABLET PO SCH ×2 (08:51→17:00)
[2016-02-27] MEDS: CloZAPine 100 MG RAPDIS TABLET PO SCH ×2 (08:51→20:32)
[2016-02-27] MEDS: PANTOPRAZOLE SODIUM 40 MG DR TABLET PO SCH (08:51)
[2016-02-27] MEDS: DOCUSATE SODIUM 100 MG CAPSULE PO SCH ×2 (08:52→17:00)
[2016-02-27] MEDS: FluPHENAZine HCL 10 MG TABLET PO SCH (20:32)
[2016-02-28 08:30] VITALS: BP 109/68
[2016-02-28] MEDS: DOCUSATE SODIUM 100 MG CAPSULE PO SCH ×2 (10:24→16:46)
[2016-02-28] MEDS: CloZAPine 100 MG RAPDIS TABLET PO SCH ×2 (10:24→20:55)
[2016-02-28] MEDS: DIVALPROEX SODIUM 500 MG DR TABLET PO SCH ×2 (10:24→16:46)
[2016-02-28] MEDS: MULTIVITAMINS WITH MINERALS, THERAPEUTIC TABLET PO SCH (10:24)
[2016-02-28] MEDS: PANTOPRAZOLE SODIUM 40 MG DR TABLET PO SCH (10:24)
[2016-02-28] MEDS: FluPHENAZine HCL 10 MG TABLET PO SCH (20:55)
[2016-02-29] MEDS: DOCUSATE SODIUM 100 MG CAPSULE PO SCH ×2 (08:35→17:00)
[2016-02-29] MEDS: DIVALPROEX SODIUM 500 MG DR TABLET PO SCH ×2 (08:36→17:00)
[2016-02-29] MEDS: MULTIVITAMINS WITH MINERALS, THERAPEUTIC TABLET PO SCH (08:36)
[2016-02-29] MEDS: PANTOPRAZOLE SODIUM 40 MG DR TABLET PO SCH (08:36)
[2016-02-29] MEDS: CloZAPine 100 MG RAPDIS TABLET PO SCH ×2 (08:36→21:53)
[2016-02-29] MEDS: FluPHENAZine HCL 10 MG TABLET PO SCH (21:53)
[2016-03-01 06:12] LABS: BASOPHILS % (AUTO) 0.6 % (0.0-2.0); EOSINOPHILS % (AUTO) 3.8 % (1.0-6.0); HEMATOCRIT 36.4 % (41-53); HEMOGLOBIN 12.1 g/dL (13.5-17.5); LYMPHOCYTES # (AUTO) 2.6 K/uL (1.0-4.8); LYMPHOCYTES % (AUTO) 34.5 % (22.0-44.0); MEAN CORPUSCULAR HEMOGLOBIN 29.3 pg (26.0-34.0); MEAN CORPUSCULAR HGB CONC 33.1 G/dL (31.0-37.0); MEAN CORPUSCULAR VOLUME 88 fL (80-100); MONOCYTES # (AUTO) 0.6 K/uL (0.1-1.0); MONOCYTES % (AUTO) 7.4 % (2.0-9.0); NEUTROPHILS # (AUTO) 4.1 K/uL (1.8-7.7); NEUTROPHILS % (AUTO) 53.7 % (40.0-70.0); PLATELET COUNT (AUTO) 287 K/uL (150-450); RED BLOOD CELL COUNT(AUTO) 4.11 MIL/uL (4.50-5.90); RED CELL DISTRIBUTION WIDTH 13.6 % (11.5-14.5); WHITE BLOOD COUNT (AUTO) 7.7 K/uL (4.5-11.0)
[2016-03-01] MEDS: CloZAPine 100 MG RAPDIS TABLET PO SCH ×2 (09:01→20:50)
[2016-03-01] MEDS: PANTOPRAZOLE SODIUM 40 MG DR TABLET PO SCH (09:02)
[2016-03-01] MEDS: MULTIVITAMINS WITH MINERALS, THERAPEUTIC TABLET PO SCH (09:02)
[2016-03-01] MEDS: DIVALPROEX SODIUM 500 MG DR TABLET PO SCH ×2 (09:02→17:03)
[2016-03-01] MEDS: DOCUSATE SODIUM 100 MG CAPSULE PO SCH ×2 (09:02→17:03)
[2016-03-01] MEDS: FluPHENAZine HCL 10 MG TABLET PO SCH (20:50)
[2016-03-02] MEDS: DIVALPROEX SODIUM 500 MG DR TABLET PO SCH ×2 (10:16→17:00)
[2016-03-02] MEDS: MULTIVITAMINS WITH MINERALS, THERAPEUTIC TABLET PO SCH (10:16)
[2016-03-02] MEDS: PANTOPRAZOLE SODIUM 40 MG DR TABLET PO SCH (10:16)
[2016-03-02] MEDS: DOCUSATE SODIUM 100 MG CAPSULE PO SCH ×2 (10:17→17:00)
[2016-03-02] MEDS: CloZAPine 100 MG RAPDIS TABLET PO SCH ×2 (10:17→21:00)
[2016-03-02] MEDS: FluPHENAZine HCL 10 MG TABLET PO SCH (21:00)
[2016-03-02] MEDS: HALOPERIDOL LACTATE 5 MG/ML VIAL IM PRN (21:06)
[2016-03-03] MEDS: MULTIVITAMINS WITH MINERALS, THERAPEUTIC TABLET PO SCH (09:00)
[2016-03-03] MEDS: PANTOPRAZOLE SODIUM 40 MG DR TABLET PO SCH (09:00)
[2016-03-03] MEDS ORDERED: CloZAPine 100 MG RAPDIS TABLET PO SCH (09:00)
[2016-03-03] MEDS: DOCUSATE SODIUM 100 MG CAPSULE PO SCH ×2 (09:00→16:58)
[2016-03-03] MEDS: CloZAPine 25 MG RAPDIS TABLET PO SCH (09:53)
[2016-03-03] MEDS: CloZAPine 100 MG RAPDIS TABLET PO SCH ×2 (09:53→20:21)
[2016-03-03] MEDS: DIVALPROEX SODIUM 500 MG DR TABLET PO SCH ×2 (09:53→16:58)
[2016-03-03] MEDS: FluPHENAZine HCL 10 MG TABLET PO SCH (20:21)
[2016-03-03] MEDS: HALOPERIDOL LACTATE 5 MG/ML VIAL IM PRN (20:22)
[2016-03-04] MEDS: CloZAPine 100 MG RAPDIS TABLET PO SCH ×2 (12:52→20:27)
[2016-03-04] MEDS: DIVALPROEX SODIUM 500 MG DR TABLET PO SCH ×2 (12:52→16:47)
[2016-03-04] MEDS: CloZAPine 25 MG RAPDIS TABLET PO SCH (12:54)
[2016-03-04] MEDS: MULTIVITAMINS WITH MINERALS, THERAPEUTIC TABLET PO SCH (12:55)
[2016-03-04] MEDS: PANTOPRAZOLE SODIUM 40 MG DR TABLET PO SCH (12:57)
[2016-03-04] MEDS: DOCUSATE SODIUM 100 MG CAPSULE PO SCH ×2 (13:00→16:47)
[2016-03-04] MEDS: FluPHENAZine HCL 10 MG TABLET PO SCH (20:27)
[2016-03-04] MEDS: HALOPERIDOL LACTATE 5 MG/ML VIAL IM PRN (20:33)
[2016-03-05] MEDS: MAGNESIUM HYDROXIDE SUSPENSION 30 ML UDCUP PO PRN (08:10)
[2016-03-05] MEDS: DOCUSATE SODIUM 100 MG CAPSULE PO SCH ×2 (08:22→16:51)
[2016-03-05] MEDS: HALOPERIDOL LACTATE 5 MG/ML VIAL IM PRN (08:22)
[2016-03-05] MEDS: PANTOPRAZOLE SODIUM 40 MG DR TABLET PO SCH (08:23)
[2016-03-05] MEDS: CloZAPine 100 MG RAPDIS TABLET PO SCH ×2 (08:23→20:53)
[2016-03-05] MEDS: DIVALPROEX SODIUM 500 MG DR TABLET PO SCH ×2 (08:23→16:56)
[2016-03-05] MEDS: MULTIVITAMINS WITH MINERALS, THERAPEUTIC TABLET PO SCH (08:23)
[2016-03-05] MEDS: CloZAPine 25 MG RAPDIS TABLET PO SCH (08:23)
[2016-03-05 10:07] VITALS: BP 122/73
[2016-03-05 10:14] LABS: CLOZAPINE 83 ng/mL (350-650); CLOZAPINE & NORCLOZAPINE 117 ng/mL; NORCLOZAPINE 34 ng/mL (Not Estab.)
[2016-03-05] MEDS: FluPHENAZine HCL 10 MG TABLET PO SCH (20:53)
[2016-03-06] MEDS: DOCUSATE SODIUM 100 MG CAPSULE PO SCH ×2 (09:18→16:55)
[2016-03-06] MEDS: DIVALPROEX SODIUM 500 MG DR TABLET PO SCH ×2 (09:18→16:55)
[2016-03-06] MEDS: PANTOPRAZOLE SODIUM 40 MG DR TABLET PO SCH (09:19)
[2016-03-06] MEDS: MULTIVITAMINS WITH MINERALS, THERAPEUTIC TABLET PO SCH (09:19)
[2016-03-06] MEDS: CloZAPine 25 MG RAPDIS TABLET PO SCH (09:20)
[2016-03-06] MEDS: CloZAPine 100 MG RAPDIS TABLET PO SCH ×2 (09:21→20:46)
[2016-03-06] MEDS: FluPHENAZine HCL 10 MG TABLET PO SCH (20:46)
[2016-03-07] MEDS: DOCUSATE SODIUM 100 MG CAPSULE PO SCH ×2 (08:51→17:00)
[2016-03-07] MEDS: DIVALPROEX SODIUM 500 MG DR TABLET PO SCH ×2 (08:51→17:00)
[2016-03-07] MEDS: CloZAPine 25 MG RAPDIS TABLET PO SCH (08:51)
[2016-03-07] MEDS: CloZAPine 100 MG RAPDIS TABLET PO SCH ×2 (08:51→21:34)
[2016-03-07] MEDS: MULTIVITAMINS WITH MINERALS, THERAPEUTIC TABLET PO SCH (08:51)
[2016-03-07] MEDS: PANTOPRAZOLE SODIUM 40 MG DR TABLET PO SCH (08:52)
[2016-03-07] MEDS: FluPHENAZine HCL 10 MG TABLET PO SCH (21:34)
[2016-03-08 06:50] LABS: BASOPHILS # (AUTO) 0.06 K/uL (0.00-0.20); BASOPHILS % (AUTO) 0.5 % (0.0-2.0); EOSINOPHILS % (AUTO) 2.59 % (1.0-6.0); HEMATOCRIT 36.9 % (41-53); HEMOGLOBIN 12.7 g/dL (13.5-17.5); LYMPHOCYTES # (AUTO) 2.6 K/uL (1.0-4.8); LYMPHOCYTES % (AUTO) 22.2 % (22.0-44.0); MEAN CORPUSCULAR HEMOGLOBIN 30.1 pg (26.0-34.0); MEAN CORPUSCULAR HGB CONC 34.4 G/dL (31.0-37.0); MEAN CORPUSCULAR VOLUME 88 fL (80-100); MONOCYTES # (AUTO) 0.8 K/uL (0.1-1.0); MONOCYTES % (AUTO) 6.8 % (2.0-9.0); NEUTROPHILS # (AUTO) 7.8 K/uL (1.8-7.7); PLATELET COUNT (AUTO) 278 K/uL (150-450); RED BLOOD CELL COUNT(AUTO) 4.21 MIL/uL (4.50-5.90); RED CELL DISTRIBUTION WIDTH 13.9 % (11.5-14.5); WHITE BLOOD COUNT (AUTO) 11.5 K/uL (4.5-11.0)
[2016-03-08 08:07] VITALS: BP 111/84
[2016-03-08] MEDS: DIVALPROEX SODIUM 500 MG DR TABLET PO SCH ×2 (09:29→17:11)
[2016-03-08] MEDS: DOCUSATE SODIUM 100 MG CAPSULE PO SCH ×2 (09:29→17:11)
[2016-03-08] MEDS: PANTOPRAZOLE SODIUM 40 MG DR TABLET PO SCH (09:29)
[2016-03-08] MEDS: MULTIVITAMINS WITH MINERALS, THERAPEUTIC TABLET PO SCH (09:29)
[2016-03-08] MEDS: CloZAPine 25 MG RAPDIS TABLET PO SCH (09:30)
[2016-03-08] MEDS: CloZAPine 100 MG RAPDIS TABLET PO SCH ×2 (09:31→17:10)
[2016-03-08] MEDS: MAGNESIUM HYDROXIDE SUSPENSION 30 ML UDCUP PO PRN (10:10)
[2016-03-08] MEDS: FluPHENAZine HCL 10 MG TABLET PO SCH (20:34)
[2016-03-09] MEDS: MULTIVITAMINS WITH MINERALS, THERAPEUTIC TABLET PO SCH (10:03)
[2016-03-09] MEDS: CloZAPine 100 MG RAPDIS TABLET PO SCH ×2 (10:03→17:22)
[2016-03-09] MEDS: PANTOPRAZOLE SODIUM 40 MG DR TABLET PO SCH (10:04)
[2016-03-09] MEDS: DOCUSATE SODIUM 100 MG CAPSULE PO SCH ×2 (10:04→17:22)
[2016-03-09] MEDS: DIVALPROEX SODIUM 500 MG DR TABLET PO SCH ×2 (10:04→17:22)
[2016-03-09] MEDS: HALOPERIDOL 5 MG TABLET PO PRN (10:04)
[2016-03-09 17:16] VITALS: BP 121/77
[2016-03-09] MEDS: FluPHENAZine HCL 10 MG TABLET PO SCH (20:57)
[2016-03-10 00:15] VITALS: BP 129/92
[2016-03-10] MEDS: LORazepam 2 MG TABLET PO PRN (00:16)
[2016-03-10] MEDS: HALOPERIDOL 5 MG TABLET PO PRN ×2 (00:16→10:08)
[2016-03-10] MEDS: DOCUSATE SODIUM 100 MG CAPSULE PO SCH ×2 (10:08→17:09)
[2016-03-10] MEDS: DIVALPROEX SODIUM 500 MG DR TABLET PO SCH ×2 (10:08→17:10)
[2016-03-10] MEDS: PANTOPRAZOLE SODIUM 40 MG DR TABLET PO SCH (10:08)
[2016-03-10] MEDS: MULTIVITAMINS WITH MINERALS, THERAPEUTIC TABLET PO SCH (10:08)
[2016-03-10] MEDS: CloZAPine 100 MG RAPDIS TABLET PO SCH ×2 (10:08→17:09)
[2016-03-10] MEDS: FluPHENAZine HCL 10 MG TABLET PO SCH (20:39)
[2016-03-11 08:00] VITALS: BP 117/79
[2016-03-11] MEDS: DOCUSATE SODIUM 100 MG CAPSULE PO SCH ×2 (08:50→16:05)
[2016-03-11] MEDS: DIVALPROEX SODIUM 500 MG DR TABLET PO SCH ×2 (08:50→16:05)
[2016-03-11] MEDS: PANTOPRAZOLE SODIUM 40 MG DR TABLET PO SCH (08:53)
[2016-03-11] MEDS: MULTIVITAMINS WITH MINERALS, THERAPEUTIC TABLET PO SCH (08:53)
[2016-03-11] MEDS: CloZAPine 100 MG RAPDIS TABLET PO SCH ×2 (08:53→16:05)
[2016-03-11 16:54] VITALS: BP 123/81
[2016-03-11] MEDS: FluPHENAZine HCL 10 MG TABLET PO SCH (20:16)
[2016-03-12] MEDS: PANTOPRAZOLE SODIUM 40 MG DR TABLET PO SCH (07:37)
[2016-03-12] MEDS: MULTIVITAMINS WITH MINERALS, THERAPEUTIC TABLET PO SCH (07:37)
[2016-03-12] MEDS: DIVALPROEX SODIUM 500 MG DR TABLET PO SCH ×2 (07:37→16:19)
[2016-03-12] MEDS: DOCUSATE SODIUM 100 MG CAPSULE PO SCH ×2 (07:37→16:19)
[2016-03-12] MEDS: CloZAPine 100 MG RAPDIS TABLET PO SCH ×2 (07:37→16:19)
[2016-03-12 08:12] VITALS: BP 111/80
[2016-03-12] MEDS: FluPHENAZine HCL 10 MG TABLET PO SCH (20:43)
[2016-03-12] MEDS: HALOPERIDOL LACTATE 5 MG/ML VIAL IM PRN (21:21)
[2016-03-13] MEDS: DIVALPROEX SODIUM 500 MG DR TABLET PO SCH ×2 (09:06→17:00)
[2016-03-13] MEDS: CloZAPine 100 MG RAPDIS TABLET PO SCH ×2 (09:06→17:00)
[2016-03-13] MEDS: MULTIVITAMINS WITH MINERALS, THERAPEUTIC TABLET PO SCH (09:07)
[2016-03-13] MEDS: PANTOPRAZOLE SODIUM 40 MG DR TABLET PO SCH (09:07)
[2016-03-13] MEDS: DOCUSATE SODIUM 100 MG CAPSULE PO SCH ×2 (09:08→17:00)
[2016-03-13] MEDS: FluPHENAZine HCL 10 MG TABLET PO SCH (20:26)
[2016-03-13] MEDS: HALOPERIDOL LACTATE 5 MG/ML VIAL IM PRN (21:58)
[2016-03-14 08:01] VITALS: BP 121/68
[2016-03-14] MEDS: DOCUSATE SODIUM 100 MG CAPSULE PO SCH ×2 (08:54→17:27)
[2016-03-14] MEDS: DIVALPROEX SODIUM 500 MG DR TABLET PO SCH ×2 (08:54→17:27)
[2016-03-14] MEDS: CloZAPine 100 MG RAPDIS TABLET PO SCH ×2 (08:54→17:27)
[2016-03-14] MEDS: PANTOPRAZOLE SODIUM 40 MG DR TABLET PO SCH (08:55)
[2016-03-14] MEDS: MULTIVITAMINS WITH MINERALS, THERAPEUTIC TABLET PO SCH (08:55)
[2016-03-14 16:27] VITALS: BP 125/78
[2016-03-14] MEDS: FluPHENAZine HCL 10 MG TABLET PO SCH (20:26)
[2016-03-15 06:44] LABS: BASOPHILS # (AUTO) 0.05 K/uL (0.00-0.20); BASOPHILS % (AUTO) 0.5 % (0.0-2.0); EOSINOPHILS # (AUTO) 0.38 K/uL (0.00-0.70); EOSINOPHILS % (AUTO) 3.56 % (1.0-6.0); HEMATOCRIT 35.3 % (41-53); HEMOGLOBIN 11.8 g/dL (13.5-17.5); LYMPHOCYTES # (AUTO) 2.8 K/uL (1.0-4.8); LYMPHOCYTES % (AUTO) 26.2 % (22.0-44.0); MEAN CORPUSCULAR HEMOGLOBIN 29.2 pg (26.0-34.0); MEAN CORPUSCULAR HGB CONC 33.5 G/dL (31.0-37.0); MEAN CORPUSCULAR VOLUME 87 fL (80-100); MONOCYTES # (AUTO) 0.7 K/uL (0.1-1.0); MONOCYTES % (AUTO) 6.5 % (2.0-9.0); NEUTROPHILS # (AUTO) 6.7 K/uL (1.8-7.7); NEUTROPHILS % (AUTO) 63.2 % (40.0-70.0); PLATELET COUNT (AUTO) 303 K/uL (150-450); RED BLOOD CELL COUNT(AUTO) 4.05 MIL/uL (4.50-5.90); RED CELL DISTRIBUTION WIDTH 12.8 % (11.5-14.5); WHITE BLOOD COUNT (AUTO) 10.6 K/uL (4.5-11.0)
[2016-03-15] MEDS: PANTOPRAZOLE SODIUM 40 MG DR TABLET PO SCH (08:51)
[2016-03-15] MEDS: MULTIVITAMINS WITH MINERALS, THERAPEUTIC TABLET PO SCH (08:51)
[2016-03-15] MEDS: DIVALPROEX SODIUM 500 MG DR TABLET PO SCH ×2 (08:51→16:38)
[2016-03-15] MEDS: DOCUSATE SODIUM 100 MG CAPSULE PO SCH ×2 (08:51→16:38)
[2016-03-15] MEDS: CloZAPine 100 MG RAPDIS TABLET PO SCH ×2 (08:52→16:39)
[2016-03-15 10:45] VITALS: BP 93/56
[2016-03-15 16:00] VITALS: BP 124/78
[2016-03-15] MEDS: FluPHENAZine HCL 10 MG TABLET PO SCH (21:17)
[2016-03-16] MEDS: PANTOPRAZOLE SODIUM 40 MG DR TABLET PO SCH (08:40)
[2016-03-16] MEDS: DIVALPROEX SODIUM 500 MG DR TABLET PO SCH ×2 (08:40→16:28)
[2016-03-16] MEDS: DOCUSATE SODIUM 100 MG CAPSULE PO SCH ×2 (08:40→16:28)
[2016-03-16] MEDS: CloZAPine 100 MG RAPDIS TABLET PO SCH ×2 (08:40→16:28)
[2016-03-16] MEDS: MULTIVITAMINS WITH MINERALS, THERAPEUTIC TABLET PO SCH (08:40)
[2016-03-16] MEDS: FluPHENAZine HCL 10 MG TABLET PO SCH (20:48)
[2016-03-17 08:00] VITALS: BP 115/77
[2016-03-17] MEDS: MULTIVITAMINS WITH MINERALS, THERAPEUTIC TABLET PO SCH (08:42)
[2016-03-17] MEDS: DIVALPROEX SODIUM 500 MG DR TABLET PO SCH ×2 (08:42→17:09)
[2016-03-17] MEDS: PANTOPRAZOLE SODIUM 40 MG DR TABLET PO SCH (08:42)
[2016-03-17] MEDS: DOCUSATE SODIUM 100 MG CAPSULE PO SCH ×2 (08:42→17:09)
[2016-03-17] MEDS: CloZAPine 100 MG RAPDIS TABLET PO SCH ×2 (08:43→17:09)
[2016-03-17] MEDS: FluPHENAZine HCL 10 MG TABLET PO SCH (20:28)
[2016-03-18] MEDS: DOCUSATE SODIUM 100 MG CAPSULE PO SCH ×2 (08:30→16:52)
[2016-03-18] MEDS: DIVALPROEX SODIUM 500 MG DR TABLET PO SCH ×2 (08:30→16:51)
[2016-03-18] MEDS: CloZAPine 100 MG RAPDIS TABLET PO SCH ×2 (08:30→16:51)
[2016-03-18] MEDS: MULTIVITAMINS WITH MINERALS, THERAPEUTIC TABLET PO SCH (08:31)
[2016-03-18] MEDS: PANTOPRAZOLE SODIUM 40 MG DR TABLET PO SCH (08:31)
[2016-03-18] MEDS: FluPHENAZine HCL 10 MG TABLET PO SCH (20:29)
[2016-03-18] MEDS: HALOPERIDOL LACTATE 5 MG/ML VIAL IM PRN (20:30)
[2016-03-19] MEDS: HALOPERIDOL LACTATE 5 MG/ML VIAL IM PRN (08:23)
[2016-03-19] MEDS: CloZAPine 100 MG RAPDIS TABLET PO SCH ×2 (09:00→16:44)
[2016-03-19] MEDS: PANTOPRAZOLE SODIUM 40 MG DR TABLET PO SCH (09:00)
[2016-03-19] MEDS: MULTIVITAMINS WITH MINERALS, THERAPEUTIC TABLET PO SCH (09:00)
[2016-03-19] MEDS: DOCUSATE SODIUM 100 MG CAPSULE PO SCH ×2 (09:00→16:44)
[2016-03-19] MEDS: DIVALPROEX SODIUM 500 MG DR TABLET PO SCH ×2 (09:00→16:44)
[2016-03-19 10:39] VITALS: BP 120/88
[2016-03-19] MEDS: FluPHENAZine HCL 10 MG TABLET PO SCH (20:27)
[2016-03-20 00:01] VITALS: BP 115/58
[2016-03-20] MEDS: DIVALPROEX SODIUM 500 MG DR TABLET PO SCH ×2 (08:42→16:52)
[2016-03-20] MEDS: MULTIVITAMINS WITH MINERALS, THERAPEUTIC TABLET PO SCH (08:42)
[2016-03-20] MEDS: PANTOPRAZOLE SODIUM 40 MG DR TABLET PO SCH (08:42)
[2016-03-20] MEDS: DOCUSATE SODIUM 100 MG CAPSULE PO SCH ×2 (08:42→16:52)
[2016-03-20] MEDS: CloZAPine 100 MG RAPDIS TABLET PO SCH ×2 (08:43→16:52)
[2016-03-20] MEDS: FluPHENAZine HCL 10 MG TABLET PO SCH (21:00)
[2016-03-20] MEDS: HALOPERIDOL LACTATE 5 MG/ML VIAL IM PRN (21:24)
[2016-03-21 08:19] VITALS: BP 103/59
[2016-03-21] MEDS: DIVALPROEX SODIUM 500 MG DR TABLET PO SCH ×2 (09:14→16:08)
[2016-03-21] MEDS: PANTOPRAZOLE SODIUM 40 MG DR TABLET PO SCH (09:14)
[2016-03-21] MEDS: MULTIVITAMINS WITH MINERALS, THERAPEUTIC TABLET PO SCH (09:14)
[2016-03-21] MEDS: DOCUSATE SODIUM 100 MG CAPSULE PO SCH ×2 (09:14→16:07)
[2016-03-21] MEDS: CloZAPine 100 MG RAPDIS TABLET PO SCH ×2 (09:14→16:08)
[2016-03-21] MEDS: FluPHENAZine HCL 10 MG TABLET PO SCH (20:08)
[2016-03-21] MEDS: HALOPERIDOL LACTATE 5 MG/ML VIAL IM PRN (20:14)
[2016-03-22 06:30] LABS: BASOPHILS # (AUTO) 0.05 K/uL (0.00-0.20); BASOPHILS % (AUTO) 0.8 % (0.0-2.0); EOSINOPHILS # (AUTO) 0.21 K/uL (0.00-0.70); EOSINOPHILS % (AUTO) 3.23 % (1.0-6.0); HEMATOCRIT 38.2 % (41-53); HEMOGLOBIN 12.6 g/dL (13.5-17.5); LYMPHOCYTES # (AUTO) 2.4 K/uL (1.0-4.8); LYMPHOCYTES % (AUTO) 36.6 % (22.0-44.0); MEAN CORPUSCULAR HEMOGLOBIN 28.8 pg (26.0-34.0); MEAN CORPUSCULAR HGB CONC 32.9 G/dL (31.0-37.0); MEAN CORPUSCULAR VOLUME 88 fL (80-100); MONOCYTES # (AUTO) 0.4 K/uL (0.1-1.0); MONOCYTES % (AUTO) 5.9 % (2.0-9.0); NEUTROPHILS # (AUTO) 3.5 K/uL (1.8-7.7); NEUTROPHILS % (AUTO) 53.5 % (40.0-70.0); PLATELET COUNT (AUTO) 358 K/uL (150-450); RED BLOOD CELL COUNT(AUTO) 4.36 MIL/uL (4.50-5.90); RED CELL DISTRIBUTION WIDTH 13.8 % (11.5-14.5); WHITE BLOOD COUNT (AUTO) 6.5 K/uL (4.5-11.0)
[2016-03-22 08:10] VITALS: BP 128/75
[2016-03-22] MEDS: DIVALPROEX SODIUM 500 MG DR TABLET PO SCH ×2 (09:00→16:03)
[2016-03-22] MEDS: MULTIVITAMINS WITH MINERALS, THERAPEUTIC TABLET PO SCH (09:00)
[2016-03-22] MEDS: DOCUSATE SODIUM 100 MG CAPSULE PO SCH ×2 (09:00→16:03)
[2016-03-22] MEDS: PANTOPRAZOLE SODIUM 40 MG DR TABLET PO SCH (09:00)
[2016-03-22] MEDS: CloZAPine 100 MG RAPDIS TABLET PO SCH ×2 (09:35→16:03)
[2016-03-22] MEDS: FluPHENAZine HCL 10 MG TABLET PO SCH (21:00)
[2016-03-22] MEDS: HALOPERIDOL LACTATE 5 MG/ML VIAL IM PRN (23:06)
[2016-03-23 08:30] VITALS: BP 109/77
[2016-03-23] MEDS: CloZAPine 100 MG RAPDIS TABLET PO SCH ×2 (09:56→17:03)
[2016-03-23] MEDS: MULTIVITAMINS WITH MINERALS, THERAPEUTIC TABLET PO SCH (09:57)
[2016-03-23] MEDS: DIVALPROEX SODIUM 500 MG DR TABLET PO SCH ×2 (09:58→17:03)
[2016-03-23] MEDS: PANTOPRAZOLE SODIUM 40 MG DR TABLET PO SCH (09:58)
[2016-03-23] MEDS: DOCUSATE SODIUM 100 MG CAPSULE PO SCH ×2 (09:58→17:03)
[2016-03-23] MEDS: FluPHENAZine HCL 10 MG TABLET PO SCH (20:21)
[2016-03-24 08:00] VITALS: BP 90/57
[2016-03-24] MEDS: DOCUSATE SODIUM 100 MG CAPSULE PO SCH ×2 (10:02→16:31)
[2016-03-24] MEDS: MULTIVITAMINS WITH MINERALS, THERAPEUTIC TABLET PO SCH (10:02)
[2016-03-24] MEDS: DIVALPROEX SODIUM 500 MG DR TABLET PO SCH ×2 (10:02→16:31)
[2016-03-24] MEDS: PANTOPRAZOLE SODIUM 40 MG DR TABLET PO SCH (10:02)
[2016-03-24] MEDS: CloZAPine 100 MG RAPDIS TABLET PO SCH ×2 (10:02→16:31)
[2016-03-24] MEDS: FluPHENAZine HCL 10 MG TABLET PO SCH (20:33)
[2016-03-25] MEDS: DOCUSATE SODIUM 100 MG CAPSULE PO SCH ×2 (09:00→17:00)
[2016-03-25] MEDS: PANTOPRAZOLE SODIUM 40 MG DR TABLET PO SCH (09:00)
[2016-03-25] MEDS: CloZAPine 100 MG RAPDIS TABLET PO SCH ×2 (09:00→17:00)
[2016-03-25] MEDS: MULTIVITAMINS WITH MINERALS, THERAPEUTIC TABLET PO SCH (09:00)
[2016-03-25] MEDS: DIVALPROEX SODIUM 500 MG DR TABLET PO SCH ×2 (09:00→17:00)
[2016-03-25 10:07] VITALS: BP 106/64
[2016-03-25] MEDS: FERROUS SULFATE 325 MG EC TABLET PO SCH (17:30)
[2016-03-25] MEDS: FluPHENAZine HCL 10 MG TABLET PO SCH (21:00)
[2016-03-25] MEDS: HALOPERIDOL LACTATE 5 MG/ML VIAL IM PRN (22:32)
[2016-03-26] MEDS: FERROUS SULFATE 325 MG EC TABLET PO SCH ×2 (06:31→17:32)
[2016-03-26 09:13] VITALS: BP 117/58
[2016-03-26] MEDS: PANTOPRAZOLE SODIUM 40 MG DR TABLET PO SCH (10:31)
[2016-03-26] MEDS: DOCUSATE SODIUM 100 MG CAPSULE PO SCH ×2 (10:31→17:33)
[2016-03-26] MEDS: MULTIVITAMINS WITH MINERALS, THERAPEUTIC TABLET PO SCH (10:31)
[2016-03-26] MEDS: DIVALPROEX SODIUM 500 MG DR TABLET PO SCH ×2 (10:31→17:33)
[2016-03-26] MEDS: CloZAPine 100 MG RAPDIS TABLET PO SCH ×2 (10:32→17:26)
[2016-03-26] MEDS: FluPHENAZine HCL 10 MG TABLET PO SCH (20:23)
[2016-03-27] MEDS: FERROUS SULFATE 325 MG EC TABLET PO SCH ×2 (06:35→17:08)
[2016-03-27 08:57] VITALS: BP 141/87
[2016-03-27] MEDS: DIVALPROEX SODIUM 500 MG DR TABLET PO SCH ×2 (09:17→17:08)
[2016-03-27] MEDS: MULTIVITAMINS WITH MINERALS, THERAPEUTIC TABLET PO SCH (09:17)
[2016-03-27] MEDS: CloZAPine 100 MG RAPDIS TABLET PO SCH ×2 (09:17→17:05)
[2016-03-27] MEDS: DOCUSATE SODIUM 100 MG CAPSULE PO SCH ×2 (09:18→17:08)
[2016-03-27] MEDS: PANTOPRAZOLE SODIUM 40 MG DR TABLET PO SCH (09:18)
[2016-03-27] MEDS: FluPHENAZine HCL 10 MG TABLET PO SCH (20:14)
[2016-03-28] MEDS: FERROUS SULFATE 325 MG EC TABLET PO SCH ×2 (06:52→17:38)
[2016-03-28 09:17] VITALS: BP 106/58
[2016-03-28] MEDS: PANTOPRAZOLE SODIUM 40 MG DR TABLET PO SCH (10:08)
[2016-03-28] MEDS: CloZAPine 100 MG RAPDIS TABLET PO SCH ×2 (10:08→17:04)
[2016-03-28] MEDS: DIVALPROEX SODIUM 500 MG DR TABLET PO SCH ×2 (10:08→17:05)
[2016-03-28] MEDS: MULTIVITAMINS WITH MINERALS, THERAPEUTIC TABLET PO SCH (10:08)
[2016-03-28] MEDS: HALOPERIDOL 5 MG TABLET PO PRN (10:08)
[2016-03-28] MEDS: DOCUSATE SODIUM 100 MG CAPSULE PO SCH ×2 (10:08→17:05)
[2016-03-28] MEDS: FluPHENAZine HCL 10 MG TABLET PO SCH (21:35)
[2016-03-29] MEDS: FERROUS SULFATE 325 MG EC TABLET PO SCH ×2 (07:22→17:30)
[2016-03-29 08:22] LABS: BASOPHILS % (AUTO) 0.3 % (0.0-2.0); EOSINOPHILS % (AUTO) 3.7 % (1.0-6.0); HEMATOCRIT 42.9 % (41-53); HEMOGLOBIN 13.7 g/dL (13.5-17.5); LYMPHOCYTES # (AUTO) 2.5 K/uL (1.0-4.8); LYMPHOCYTES % (AUTO) 28.7 % (22.0-44.0); MEAN CORPUSCULAR HEMOGLOBIN 28.2 pg (26.0-34.0); MEAN CORPUSCULAR HGB CONC 31.9 G/dL (31.0-37.0); MEAN CORPUSCULAR VOLUME 88 fL (80-100); MONOCYTES # (AUTO) 0.4 K/uL (0.1-1.0); MONOCYTES % (AUTO) 4.7 % (2.0-9.0); NEUTROPHILS # (AUTO) 5.4 K/uL (1.8-7.7); NEUTROPHILS % (AUTO) 62.6 % (40.0-70.0); PLATELET COUNT (AUTO) 354 K/uL (150-450); RED BLOOD CELL COUNT(AUTO) 4.85 MIL/uL (4.50-5.90); RED CELL DISTRIBUTION WIDTH 13.5 % (11.5-14.5); WHITE BLOOD COUNT (AUTO) 8.7 K/uL (4.5-11.0)
[2016-03-29 08:45] VITALS: BP 101/58
[2016-03-29] MEDS: PANTOPRAZOLE SODIUM 40 MG DR TABLET PO SCH (10:39)
[2016-03-29] MEDS: DIVALPROEX SODIUM 500 MG DR TABLET PO SCH ×2 (10:39→17:00)
[2016-03-29] MEDS: MULTIVITAMINS WITH MINERALS, THERAPEUTIC TABLET PO SCH (10:39)
[2016-03-29] MEDS: DOCUSATE SODIUM 100 MG CAPSULE PO SCH ×2 (10:39→17:00)
[2016-03-29] MEDS: CloZAPine 100 MG RAPDIS TABLET PO SCH ×2 (10:39→17:00)
[2016-03-29] MEDS: FluPHENAZine HCL 10 MG TABLET PO SCH (21:00)
[2016-03-29] MEDS: HALOPERIDOL LACTATE 5 MG/ML VIAL IM PRN (21:37)
[2016-03-30] MEDS: FERROUS SULFATE 325 MG EC TABLET PO SCH ×2 (07:03→17:21)
[2016-03-30 08:12] VITALS: BP 129/74
[2016-03-30] MEDS: DIVALPROEX SODIUM 500 MG DR TABLET PO SCH ×2 (09:35→17:00)
[2016-03-30] MEDS: MULTIVITAMINS WITH MINERALS, THERAPEUTIC TABLET PO SCH (09:35)
[2016-03-30] MEDS: DOCUSATE SODIUM 100 MG CAPSULE PO SCH ×2 (09:35→17:00)
[2016-03-30] MEDS: CloZAPine 100 MG RAPDIS TABLET PO SCH ×2 (09:35→17:00)
[2016-03-30] MEDS: PANTOPRAZOLE SODIUM 40 MG DR TABLET PO SCH (09:35)
[2016-03-30] MEDS: FluPHENAZine HCL 10 MG TABLET PO SCH (21:00)
[2016-03-30] MEDS: HALOPERIDOL LACTATE 5 MG/ML VIAL IM PRN (21:01)
[2016-03-31] MEDS: FERROUS SULFATE 325 MG EC TABLET PO SCH ×2 (06:53→17:30)
[2016-03-31] MEDS: CloZAPine 100 MG RAPDIS TABLET PO SCH ×2 (07:58→17:00)
[2016-03-31] MEDS: PANTOPRAZOLE SODIUM 40 MG DR TABLET PO SCH (07:58)
[2016-03-31] MEDS: DIVALPROEX SODIUM 500 MG DR TABLET PO SCH ×2 (07:58→17:00)
[2016-03-31] MEDS: DOCUSATE SODIUM 100 MG CAPSULE PO SCH ×2 (07:58→17:00)
[2016-03-31] MEDS: MULTIVITAMINS WITH MINERALS, THERAPEUTIC TABLET PO SCH (07:58)
[2016-03-31 08:05] VITALS: BP 115/70
[2016-03-31 17:00] VITALS: BP 122/69
[2016-03-31] MEDS: FluPHENAZine HCL 10 MG TABLET PO SCH (20:34)
[2016-03-31] MEDS: HALOPERIDOL LACTATE 5 MG/ML VIAL IM PRN (20:34)
[2016-04-01] MEDS: FERROUS SULFATE 325 MG EC TABLET PO SCH ×2 (06:34→16:35)
[2016-04-01] MEDS: PANTOPRAZOLE SODIUM 40 MG DR TABLET PO SCH (09:34)
[2016-04-01] MEDS: DIVALPROEX SODIUM 500 MG DR TABLET PO SCH ×2 (09:34→16:35)
[2016-04-01] MEDS: MULTIVITAMINS WITH MINERALS, THERAPEUTIC TABLET PO SCH (09:34)
[2016-04-01] MEDS: DOCUSATE SODIUM 100 MG CAPSULE PO SCH ×2 (09:34→16:35)
[2016-04-01] MEDS: CloZAPine 100 MG RAPDIS TABLET PO SCH ×2 (09:34→16:35)
[2016-04-01 09:48] VITALS: BP 132/90
[2016-04-01] MEDS: FluPHENAZine HCL 10 MG TABLET PO SCH (22:10)
[2016-04-02] MEDS: FERROUS SULFATE 325 MG EC TABLET PO SCH ×2 (06:43→17:30)
[2016-04-02] MEDS: PANTOPRAZOLE SODIUM 40 MG DR TABLET PO SCH (08:39)
[2016-04-02] MEDS: MULTIVITAMINS WITH MINERALS, THERAPEUTIC TABLET PO SCH (08:39)
[2016-04-02] MEDS: CloZAPine 100 MG RAPDIS TABLET PO SCH ×2 (08:39→17:00)
[2016-04-02] MEDS: DIVALPROEX SODIUM 500 MG DR TABLET PO SCH ×2 (08:39→17:00)
[2016-04-02] MEDS: DOCUSATE SODIUM 100 MG CAPSULE PO SCH ×2 (08:39→17:00)
[2016-04-02] MEDS: FluPHENAZine HCL 10 MG TABLET PO SCH (20:51)
[2016-04-02] MEDS: HALOPERIDOL LACTATE 5 MG/ML VIAL IM PRN (21:52)
[2016-04-03] MEDS: FERROUS SULFATE 325 MG EC TABLET PO SCH ×2 (07:00→17:13)
[2016-04-03 08:06] VITALS: BP 104/71
[2016-04-03] MEDS: MULTIVITAMINS WITH MINERALS, THERAPEUTIC TABLET PO SCH (10:22)
[2016-04-03] MEDS: DOCUSATE SODIUM 100 MG CAPSULE PO SCH ×2 (10:22→17:14)
[2016-04-03] MEDS: PANTOPRAZOLE SODIUM 40 MG DR TABLET PO SCH (10:22)
[2016-04-03] MEDS: CloZAPine 100 MG RAPDIS TABLET PO SCH ×2 (10:23→17:14)
[2016-04-03] MEDS: DIVALPROEX SODIUM 500 MG DR TABLET PO SCH ×2 (10:23→17:14)
[2016-04-03] MEDS: FluPHENAZine HCL 10 MG TABLET PO SCH (21:13)
[2016-04-04] MEDS: FERROUS SULFATE 325 MG EC TABLET PO SCH ×2 (07:02→16:42)
[2016-04-04 08:07] VITALS: BP 101/60
[2016-04-04] MEDS: CloZAPine 100 MG RAPDIS TABLET PO SCH ×2 (08:27→16:42)
[2016-04-04] MEDS: PANTOPRAZOLE SODIUM 40 MG DR TABLET PO SCH (08:28)
[2016-04-04] MEDS: DIVALPROEX SODIUM 500 MG DR TABLET PO SCH ×2 (08:28→16:42)
[2016-04-04] MEDS: DOCUSATE SODIUM 100 MG CAPSULE PO SCH ×2 (08:28→16:42)
[2016-04-04] MEDS: MULTIVITAMINS WITH MINERALS, THERAPEUTIC TABLET PO SCH (08:28)
[2016-04-04] MEDS: FluPHENAZine HCL 10 MG TABLET PO SCH (20:33)
[2016-04-04] MEDS: HALOPERIDOL LACTATE 5 MG/ML VIAL IM PRN (20:38)
[2016-04-05 06:38] LABS: BASOPHILS # (AUTO) 0.04 K/uL (0.00-0.20); BASOPHILS % (AUTO) 0.4 % (0.0-2.0); EOSINOPHILS # (AUTO) 0.16 K/uL (0.00-0.70); EOSINOPHILS % (AUTO) 1.89 % (1.0-6.0); HEMATOCRIT 34.8 % (41-53); HEMOGLOBIN 11.9 g/dL (13.5-17.5); LYMPHOCYTES # (AUTO) 1.9 K/uL (1.0-4.8); LYMPHOCYTES % (AUTO) 23.4 % (22.0-44.0); MEAN CORPUSCULAR HEMOGLOBIN 29.4 pg (26.0-34.0); MEAN CORPUSCULAR HGB CONC 34.3 G/dL (31.0-37.0); MEAN CORPUSCULAR VOLUME 86 fL (80-100); MONOCYTES # (AUTO) 0.3 K/uL (0.1-1.0); MONOCYTES % (AUTO) 3.9 % (2.0-9.0); NEUTROPHILS # (AUTO) 5.8 K/uL (1.8-7.7); NEUTROPHILS % (AUTO) 70.3 % (40.0-70.0); PLATELET COUNT (AUTO) 282 K/uL (150-450); RED BLOOD CELL COUNT(AUTO) 4.05 MIL/uL (4.50-5.90); RED CELL DISTRIBUTION WIDTH 13.5 % (11.5-14.5); WHITE BLOOD COUNT (AUTO) 8.3 K/uL (4.5-11.0)
[2016-04-05] MEDS: FERROUS SULFATE 325 MG EC TABLET PO SCH ×2 (07:03→16:23)
[2016-04-05] MEDS: DIVALPROEX SODIUM 500 MG DR TABLET PO SCH ×2 (08:12→16:22)
[2016-04-05] MEDS: PANTOPRAZOLE SODIUM 40 MG DR TABLET PO SCH (08:12)
[2016-04-05] MEDS: MULTIVITAMINS WITH MINERALS, THERAPEUTIC TABLET PO SCH (08:12)
[2016-04-05] MEDS: DOCUSATE SODIUM 100 MG CAPSULE PO SCH ×2 (08:12→16:22)
[2016-04-05] MEDS: CloZAPine 100 MG RAPDIS TABLET PO SCH ×2 (08:12→16:22)
[2016-04-05 08:18] VITALS: BP 110/83
[2016-04-05] MEDS: MAGNESIUM HYDROXIDE SUSPENSION 30 ML UDCUP PO PRN (08:30)
[2016-04-05 16:56] VITALS: BP 126/78
[2016-04-05] MEDS: FluPHENAZine HCL 10 MG TABLET PO SCH (20:05)
[2016-04-06] MEDS: FERROUS SULFATE 325 MG EC TABLET PO SCH ×2 (07:03→17:15)
[2016-04-06 08:00] VITALS: BP 121/72
[2016-04-06] MEDS: MULTIVITAMINS WITH MINERALS, THERAPEUTIC TABLET PO SCH (11:01)
[2016-04-06] MEDS: PANTOPRAZOLE SODIUM 40 MG DR TABLET PO SCH (11:01)
[2016-04-06] MEDS: DIVALPROEX SODIUM 500 MG DR TABLET PO SCH ×2 (11:01→17:15)
[2016-04-06] MEDS: DOCUSATE SODIUM 100 MG CAPSULE PO SCH ×2 (11:01→17:15)
[2016-04-06] MEDS: CloZAPine 100 MG RAPDIS TABLET PO SCH ×2 (11:02→17:15)
[2016-04-06 17:31] VITALS: BP 112/76
[2016-04-06] MEDS: FluPHENAZine HCL 10 MG TABLET PO SCH (20:34)
[2016-04-07] MEDS: FERROUS SULFATE 325 MG EC TABLET PO SCH ×2 (10:02→16:41)
[2016-04-07] MEDS: MULTIVITAMINS WITH MINERALS, THERAPEUTIC TABLET PO SCH (10:02)
[2016-04-07] MEDS: DIVALPROEX SODIUM 500 MG DR TABLET PO SCH ×2 (10:02→16:41)
[2016-04-07] MEDS: DOCUSATE SODIUM 100 MG CAPSULE PO SCH ×2 (10:02→16:41)
[2016-04-07] MEDS: PANTOPRAZOLE SODIUM 40 MG DR TABLET PO SCH (10:04)
[2016-04-07] MEDS: CloZAPine 100 MG RAPDIS TABLET PO SCH ×2 (10:04→16:40)
[2016-04-07 10:44] VITALS: BP 114/74
[2016-04-07 16:00] VITALS: BP 115/78
[2016-04-07] MEDS: FluPHENAZine HCL 10 MG TABLET PO SCH (20:26)
[2016-04-08 05:55] VITALS: BP 99/71
[2016-04-08] MEDS: FERROUS SULFATE 325 MG EC TABLET PO SCH ×2 (06:40→17:35)
[2016-04-08 08:04] VITALS: BP 127/93
[2016-04-08] MEDS: MULTIVITAMINS WITH MINERALS, THERAPEUTIC TABLET PO SCH (09:12)
[2016-04-08] MEDS: DOCUSATE SODIUM 100 MG CAPSULE PO SCH ×2 (09:12→17:35)
[2016-04-08] MEDS: PANTOPRAZOLE SODIUM 40 MG DR TABLET PO SCH (09:12)
[2016-04-08] MEDS: DIVALPROEX SODIUM 500 MG DR TABLET PO SCH ×2 (09:12→17:35)
[2016-04-08] MEDS: CloZAPine 100 MG RAPDIS TABLET PO SCH ×2 (09:13→17:31)
[2016-04-08 19:14] VITALS: BP 124/80
[2016-04-08] MEDS: FluPHENAZine HCL 10 MG TABLET PO SCH (20:12)
[2016-04-09] MEDS: FERROUS SULFATE 325 MG EC TABLET PO SCH ×2 (07:00→17:36)
[2016-04-09 08:04] VITALS: BP 114/86
[2016-04-09] MEDS: PANTOPRAZOLE SODIUM 40 MG DR TABLET PO SCH (08:58)
[2016-04-09] MEDS: DIVALPROEX SODIUM 500 MG DR TABLET PO SCH ×2 (08:58→17:36)
[2016-04-09] MEDS: MULTIVITAMINS WITH MINERALS, THERAPEUTIC TABLET PO SCH (08:59)
[2016-04-09] MEDS: DOCUSATE SODIUM 100 MG CAPSULE PO SCH ×2 (08:59→17:36)
[2016-04-09] MEDS: CloZAPine 100 MG RAPDIS TABLET PO SCH ×2 (09:00→17:36)
[2016-04-09 16:21] VITALS: BP 114/72
[2016-04-09] MEDS: FluPHENAZine HCL 10 MG TABLET PO SCH (20:11)
[2016-04-10] MEDS: FERROUS SULFATE 325 MG EC TABLET PO SCH ×2 (07:01→17:30)
[2016-04-10 08:07] VITALS: BP 103/66
[2016-04-10] MEDS: DIVALPROEX SODIUM 500 MG DR TABLET PO SCH ×2 (08:40→17:00)
[2016-04-10] MEDS: DOCUSATE SODIUM 100 MG CAPSULE PO SCH ×2 (08:40→17:00)
[2016-04-10] MEDS: MULTIVITAMINS WITH MINERALS, THERAPEUTIC TABLET PO SCH (08:40)
[2016-04-10] MEDS: PANTOPRAZOLE SODIUM 40 MG DR TABLET PO SCH (08:40)
[2016-04-10] MEDS: CloZAPine 100 MG RAPDIS TABLET PO SCH ×2 (08:42→17:00)
[2016-04-10] MEDS: FluPHENAZine DECANOATE 25 MG/ML IM SCH (08:43)
[2016-04-10 16:31] VITALS: BP 110/71
[2016-04-10] MEDS: FluPHENAZine HCL 10 MG TABLET PO SCH (20:18)
[2016-04-10] MEDS: HALOPERIDOL LACTATE 5 MG/ML VIAL IM PRN (20:19)
[2016-04-11] MEDS: FERROUS SULFATE 325 MG EC TABLET PO SCH ×2 (06:39→16:53)
[2016-04-11 08:07] VITALS: BP 106/85
[2016-04-11] MEDS: CloZAPine 100 MG RAPDIS TABLET PO SCH ×2 (09:46→16:53)
[2016-04-11] MEDS: DOCUSATE SODIUM 100 MG CAPSULE PO SCH ×2 (09:47→16:53)
[2016-04-11] MEDS: PANTOPRAZOLE SODIUM 40 MG DR TABLET PO SCH (09:47)
[2016-04-11] MEDS: DIVALPROEX SODIUM 500 MG DR TABLET PO SCH ×2 (09:47→16:53)
[2016-04-11] MEDS: MULTIVITAMINS WITH MINERALS, THERAPEUTIC TABLET PO SCH (09:48)
[2016-04-11 16:19] VITALS: BP 112/72
[2016-04-11] MEDS: FluPHENAZine HCL 10 MG TABLET PO SCH (20:28)
[2016-04-12] MEDS: FERROUS SULFATE 325 MG EC TABLET PO SCH ×2 (07:01→17:25)
[2016-04-12 07:35] LABS: BASOPHILS # (AUTO) 0.05 K/uL (0.00-0.20); BASOPHILS % (AUTO) 0.8 % (0.0-2.0); EOSINOPHILS # (AUTO) 0.15 K/uL (0.00-0.70); EOSINOPHILS % (AUTO) 2.66 % (1.0-6.0); HEMATOCRIT 36.2 % (41-53); HEMOGLOBIN 12.2 g/dL (13.5-17.5); LYMPHOCYTES # (AUTO) 2.2 K/uL (1.0-4.8); LYMPHOCYTES % (AUTO) 38.7 % (22.0-44.0); MEAN CORPUSCULAR HEMOGLOBIN 28.8 pg (26.0-34.0); MEAN CORPUSCULAR HGB CONC 33.7 G/dL (31.0-37.0); MEAN CORPUSCULAR VOLUME 86 fL (80-100); MONOCYTES # (AUTO) 0.2 K/uL (0.1-1.0); MONOCYTES % (AUTO) 3.6 % (2.0-9.0); NEUTROPHILS # (AUTO) 3.1 K/uL (1.8-7.7); NEUTROPHILS % (AUTO) 54.2 % (40.0-70.0); PLATELET COUNT (AUTO) 329 K/uL (150-450); RED BLOOD CELL COUNT(AUTO) 4.23 MIL/uL (4.50-5.90); RED CELL DISTRIBUTION WIDTH 13.1 % (11.5-14.5); WHITE BLOOD COUNT (AUTO) 5.7 K/uL (4.5-11.0)
[2016-04-12 08:29] VITALS: BP 106/67
[2016-04-12] MEDS: CloZAPine 100 MG RAPDIS TABLET PO SCH ×2 (10:32→17:25)
[2016-04-12] MEDS: DIVALPROEX SODIUM 500 MG DR TABLET PO SCH ×2 (10:32→17:25)
[2016-04-12] MEDS: PANTOPRAZOLE SODIUM 40 MG DR TABLET PO SCH (10:32)
[2016-04-12] MEDS: DOCUSATE SODIUM 100 MG CAPSULE PO SCH ×2 (10:32→17:25)
[2016-04-12] MEDS: MULTIVITAMINS WITH MINERALS, THERAPEUTIC TABLET PO SCH (10:32)
[2016-04-12] MEDS: FluPHENAZine HCL 10 MG TABLET PO SCH (21:15)
[2016-04-13] MEDS: FERROUS SULFATE 325 MG EC TABLET PO SCH ×2 (06:44→17:31)
[2016-04-13 08:31] VITALS: BP 111/73
[2016-04-13] MEDS: MULTIVITAMINS WITH MINERALS, THERAPEUTIC TABLET PO SCH (09:16)
[2016-04-13] MEDS: DIVALPROEX SODIUM 500 MG DR TABLET PO SCH ×2 (09:16→17:31)
[2016-04-13] MEDS: DOCUSATE SODIUM 100 MG CAPSULE PO SCH ×2 (09:16→17:31)
[2016-04-13] MEDS: PANTOPRAZOLE SODIUM 40 MG DR TABLET PO SCH (09:17)
[2016-04-13] MEDS: CloZAPine 100 MG RAPDIS TABLET PO SCH ×2 (09:18→17:31)
[2016-04-13 16:13] VITALS: BP 112/71
[2016-04-14] MEDS: FERROUS SULFATE 325 MG EC TABLET PO SCH ×2 (06:36→17:24)
[2016-04-14 08:05] VITALS: BP 109/64
[2016-04-14] MEDS: DOCUSATE SODIUM 100 MG CAPSULE PO SCH ×2 (08:57→17:24)
[2016-04-14] MEDS: DIVALPROEX SODIUM 500 MG DR TABLET PO SCH ×2 (08:57→17:24)
[2016-04-14] MEDS: CloZAPine 100 MG RAPDIS TABLET PO SCH ×2 (08:57→17:24)
[2016-04-14] MEDS: PANTOPRAZOLE SODIUM 40 MG DR TABLET PO SCH (08:57)
[2016-04-14] MEDS: MULTIVITAMINS WITH MINERALS, THERAPEUTIC TABLET PO SCH (08:57)
[2016-04-14 17:00] VITALS: BP 99/56
[2016-04-15] MEDS: FERROUS SULFATE 325 MG EC TABLET PO SCH ×3 (06:56→17:45)
[2016-04-15 09:12] VITALS: BP 108/61
[2016-04-15] MEDS: CloZAPine 100 MG RAPDIS TABLET PO SCH ×2 (12:37→16:40)
[2016-04-15] MEDS: MULTIVITAMINS WITH MINERALS, THERAPEUTIC TABLET PO SCH (12:38)
[2016-04-15] MEDS: PANTOPRAZOLE SODIUM 40 MG DR TABLET PO SCH (12:38)
[2016-04-15] MEDS: DIVALPROEX SODIUM 500 MG DR TABLET PO SCH ×2 (12:38→16:40)
[2016-04-15] MEDS: DOCUSATE SODIUM 100 MG CAPSULE PO SCH ×2 (12:39→16:40)
[2016-04-15 16:17] VITALS: BP 112/71
[2016-04-16 08:00] VITALS: BP 115/68
[2016-04-16] MEDS: CloZAPine 100 MG RAPDIS TABLET PO SCH ×2 (10:56→16:34)
[2016-04-16] MEDS: PANTOPRAZOLE SODIUM 40 MG DR TABLET PO SCH (10:56)
[2016-04-16] MEDS: MULTIVITAMINS WITH MINERALS, THERAPEUTIC TABLET PO SCH (10:57)
[2016-04-16] MEDS: DIVALPROEX SODIUM 500 MG DR TABLET PO SCH ×2 (10:58→16:35)
[2016-04-16] MEDS: DOCUSATE SODIUM 100 MG CAPSULE PO SCH ×2 (10:58→16:35)
[2016-04-16 16:25] VITALS: BP 121/69
[2016-04-16] MEDS: FERROUS SULFATE 325 MG EC TABLET PO SCH (17:33)
[2016-04-17] MEDS: FERROUS SULFATE 325 MG EC TABLET PO SCH ×2 (07:01→16:45)
[2016-04-17 08:02] VITALS: BP 108/68
[2016-04-17] MEDS: MULTIVITAMINS WITH MINERALS, THERAPEUTIC TABLET PO SCH (10:26)
[2016-04-17] MEDS: PANTOPRAZOLE SODIUM 40 MG DR TABLET PO SCH (10:26)
[2016-04-17] MEDS: CloZAPine 100 MG RAPDIS TABLET PO SCH ×2 (10:26→16:44)
[2016-04-17] MEDS: DIVALPROEX SODIUM 500 MG DR TABLET PO SCH ×2 (10:27→16:44)
[2016-04-17] MEDS: DOCUSATE SODIUM 100 MG CAPSULE PO SCH ×2 (10:27→16:45)
[2016-04-17 16:00] VITALS: BP 116/64
[2016-04-18] MEDS: FERROUS SULFATE 325 MG EC TABLET PO SCH ×2 (06:37→16:43)
[2016-04-18] MEDS: MULTIVITAMINS WITH MINERALS, THERAPEUTIC TABLET PO SCH ×2 (09:00→09:33)
[2016-04-18] MEDS: PANTOPRAZOLE SODIUM 40 MG DR TABLET PO SCH ×2 (09:00→09:33)
[2016-04-18] MEDS: DIVALPROEX SODIUM 500 MG DR TABLET PO SCH ×3 (09:00→16:43)
[2016-04-18] MEDS: DOCUSATE SODIUM 100 MG CAPSULE PO SCH ×3 (09:00→16:43)
[2016-04-18] MEDS: CloZAPine 100 MG RAPDIS TABLET PO SCH ×3 (09:00→16:43)
[2016-04-18 09:56] VITALS: BP 105/59
[2016-04-18] MEDS: HALOPERIDOL LACTATE 5 MG/ML VIAL IM PRN (09:58)
[2016-04-18 17:00] VITALS: BP 105/64
[2016-04-19 06:41] LABS: BASOPHILS % (AUTO) 1.7 % (0.0-2.0); EOSINOPHILS % (AUTO) 1.9 % (1.0-6.0); HEMATOCRIT 36.9 % (41-53); LYMPHOCYTES # (AUTO) 1.9 K/uL (1.0-4.8); LYMPHOCYTES % (AUTO) 30.4 % (22.0-44.0); MEAN CORPUSCULAR HGB CONC 32.4 G/dL (31.0-37.0); MEAN CORPUSCULAR VOLUME 86 fL (80-100); MONOCYTES # (AUTO) 0.2 K/uL (0.1-1.0); MONOCYTES % (AUTO) 3.2 % (2.0-9.0); NEUTROPHILS % (AUTO) 62.8 % (40.0-70.0); PLATELET COUNT (AUTO) 309 K/uL (150-450); RED BLOOD CELL COUNT(AUTO) 4.28 MIL/uL (4.50-5.90); RED CELL DISTRIBUTION WIDTH 13.5 % (11.5-14.5); WHITE BLOOD COUNT (AUTO) 6.4 K/uL (4.5-11.0)
[2016-04-19] MEDS: MULTIVITAMINS WITH MINERALS, THERAPEUTIC TABLET PO SCH (10:42)
[2016-04-19] MEDS: DIVALPROEX SODIUM 500 MG DR TABLET PO SCH ×2 (10:42→17:32)
[2016-04-19] MEDS: CloZAPine 100 MG RAPDIS TABLET PO SCH ×2 (10:42→17:33)
[2016-04-19] MEDS: FERROUS SULFATE 325 MG EC TABLET PO SCH ×2 (10:42→17:32)
[2016-04-19] MEDS: PANTOPRAZOLE SODIUM 40 MG DR TABLET PO SCH (10:42)
[2016-04-19] MEDS: DOCUSATE SODIUM 100 MG CAPSULE PO SCH ×2 (10:42→17:32)
[2016-04-20 06:43] VITALS: BP 112/78
[2016-04-20] MEDS: FERROUS SULFATE 325 MG EC TABLET PO SCH ×2 (07:02→17:37)
[2016-04-20 08:11] VITALS: BP 107/68
[2016-04-20] MEDS: MULTIVITAMINS WITH MINERALS, THERAPEUTIC TABLET PO SCH (09:26)
[2016-04-20] MEDS: DIVALPROEX SODIUM 500 MG DR TABLET PO SCH ×2 (09:26→17:37)
[2016-04-20] MEDS: PANTOPRAZOLE SODIUM 40 MG DR TABLET PO SCH (09:26)
[2016-04-20] MEDS: CloZAPine 100 MG RAPDIS TABLET PO SCH ×2 (09:27→17:37)
[2016-04-20] MEDS: DOCUSATE SODIUM 100 MG CAPSULE PO SCH ×2 (09:27→17:37)
[2016-04-20 18:17] VITALS: BP 106/64
[2016-04-21] MEDS: FERROUS SULFATE 325 MG EC TABLET PO SCH ×2 (06:53→17:45)
[2016-04-21 08:21] VITALS: BP 136/77
[2016-04-21] MEDS: PANTOPRAZOLE SODIUM 40 MG DR TABLET PO SCH (09:48)
[2016-04-21] MEDS: MULTIVITAMINS WITH MINERALS, THERAPEUTIC TABLET PO SCH (09:48)
[2016-04-21] MEDS: DOCUSATE SODIUM 100 MG CAPSULE PO SCH ×2 (09:48→17:45)
[2016-04-21] MEDS: CloZAPine 100 MG RAPDIS TABLET PO SCH ×2 (09:48→17:45)
[2016-04-21] MEDS: DIVALPROEX SODIUM 500 MG DR TABLET PO SCH ×2 (09:48→17:45)
[2016-04-21 18:38] VITALS: BP 101/65
[2016-04-22] MEDS: FERROUS SULFATE 325 MG EC TABLET PO SCH ×2 (06:38→17:04)
[2016-04-22] MEDS: DIVALPROEX SODIUM 500 MG DR TABLET PO SCH ×2 (09:40→17:04)
[2016-04-22] MEDS: PANTOPRAZOLE SODIUM 40 MG DR TABLET PO SCH (09:40)
[2016-04-22] MEDS: MULTIVITAMINS WITH MINERALS, THERAPEUTIC TABLET PO SCH (09:40)
[2016-04-22] MEDS: DOCUSATE SODIUM 100 MG CAPSULE PO SCH ×2 (09:40→17:04)
[2016-04-22] MEDS: CloZAPine 100 MG RAPDIS TABLET PO SCH ×2 (09:40→17:04)
[2016-04-22 13:41] VITALS: BP 105/64
[2016-04-22 16:27] VITALS: BP 123/78
[2016-04-23] MEDS: FERROUS SULFATE 325 MG EC TABLET PO SCH ×2 (07:03→18:46)
[2016-04-23 08:08] VITALS: BP 149/78
[2016-04-23] MEDS: MULTIVITAMINS WITH MINERALS, THERAPEUTIC TABLET PO SCH (09:01)
[2016-04-23] MEDS: DOCUSATE SODIUM 100 MG CAPSULE PO SCH ×2 (09:01→18:46)
[2016-04-23] MEDS: CloZAPine 100 MG RAPDIS TABLET PO SCH ×2 (09:01→18:45)
[2016-04-23] MEDS: DIVALPROEX SODIUM 500 MG DR TABLET PO SCH ×2 (09:01→18:46)
[2016-04-23] MEDS: PANTOPRAZOLE SODIUM 40 MG DR TABLET PO SCH (09:01)
[2016-04-24] MEDS: FERROUS SULFATE 325 MG EC TABLET PO SCH ×2 (06:41→17:30)
[2016-04-24 08:04] VITALS: BP 112/79
[2016-04-24] MEDS: DOCUSATE SODIUM 100 MG CAPSULE PO SCH ×2 (09:16→17:30)
[2016-04-24] MEDS: DIVALPROEX SODIUM 500 MG DR TABLET PO SCH ×2 (09:16→17:30)
[2016-04-24] MEDS: MULTIVITAMINS WITH MINERALS, THERAPEUTIC TABLET PO SCH (09:16)
[2016-04-24] MEDS: PANTOPRAZOLE SODIUM 40 MG DR TABLET PO SCH (09:17)
[2016-04-24] MEDS: CloZAPine 100 MG RAPDIS TABLET PO SCH ×2 (09:17→17:30)
[2016-04-24] MEDS: FluPHENAZine DECANOATE 25 MG/ML IM SCH (09:18)
[2016-04-25] MEDS: FERROUS SULFATE 325 MG EC TABLET PO SCH ×2 (06:30→16:45)
[2016-04-25 08:04] VITALS: BP 99/57
[2016-04-25] MEDS: DIVALPROEX SODIUM 500 MG DR TABLET PO SCH ×2 (09:32→16:45)
[2016-04-25] MEDS: DOCUSATE SODIUM 100 MG CAPSULE PO SCH ×2 (09:32→16:45)
[2016-04-25] MEDS: CloZAPine 100 MG RAPDIS TABLET PO SCH ×2 (09:33→16:45)
[2016-04-25] MEDS: MULTIVITAMINS WITH MINERALS, THERAPEUTIC TABLET PO SCH (09:33)
[2016-04-25] MEDS: PANTOPRAZOLE SODIUM 40 MG DR TABLET PO SCH (09:33)
[2016-04-25 16:32] VITALS: BP 123/78
[2016-04-26] MEDS: FERROUS SULFATE 325 MG EC TABLET PO SCH ×2 (06:43→17:17)
[2016-04-26 06:55] LABS: EOSINOPHILS % (AUTO) 2.8 % (1.0-6.0); HEMATOCRIT 37.4 % (41-53); HEMOGLOBIN 12.2 g/dL (13.5-17.5); LYMPHOCYTES # (AUTO) 1.7 K/uL (1.0-4.8); LYMPHOCYTES % (AUTO) 32.9 % (22.0-44.0); MEAN CORPUSCULAR HEMOGLOBIN 28.1 pg (26.0-34.0); MEAN CORPUSCULAR HGB CONC 32.7 G/dL (31.0-37.0); MEAN CORPUSCULAR VOLUME 86 fL (80-100); MONOCYTES # (AUTO) 0.1 K/uL (0.1-1.0); MONOCYTES % (AUTO) 2.7 % (2.0-9.0); NEUTROPHILS # (AUTO) 3.1 K/uL (1.8-7.7); NEUTROPHILS % (AUTO) 60.6 % (40.0-70.0); PLATELET COUNT (AUTO) 320 K/uL (150-450); RED BLOOD CELL COUNT(AUTO) 4.35 MIL/uL (4.50-5.90); RED CELL DISTRIBUTION WIDTH 13.6 % (11.5-14.5); WHITE BLOOD COUNT (AUTO) 5.1 K/uL (4.5-11.0)
[2016-04-26 08:00] VITALS: BP 100/57
[2016-04-26] MEDS: CloZAPine 100 MG RAPDIS TABLET PO SCH ×2 (10:04→17:16)
[2016-04-26] MEDS: DIVALPROEX SODIUM 500 MG DR TABLET PO SCH ×2 (10:04→17:17)
[2016-04-26] MEDS: DOCUSATE SODIUM 100 MG CAPSULE PO SCH ×2 (10:04→17:16)
[2016-04-26] MEDS: PANTOPRAZOLE SODIUM 40 MG DR TABLET PO SCH (10:04)
[2016-04-26] MEDS: MULTIVITAMINS WITH MINERALS, THERAPEUTIC TABLET PO SCH (10:05)
[2016-04-26 21:33] VITALS: BP 109/64
[2016-04-27] MEDS: FERROUS SULFATE 325 MG EC TABLET PO SCH ×2 (06:52→17:10)
[2016-04-27 08:04] VITALS: BP 112/62
[2016-04-27] MEDS: MULTIVITAMINS WITH MINERALS, THERAPEUTIC TABLET PO SCH (09:25)
[2016-04-27] MEDS: PANTOPRAZOLE SODIUM 40 MG DR TABLET PO SCH (09:25)
[2016-04-27] MEDS: CloZAPine 100 MG RAPDIS TABLET PO SCH ×2 (09:25→17:09)
[2016-04-27] MEDS: DIVALPROEX SODIUM 500 MG DR TABLET PO SCH ×2 (09:25→17:09)
[2016-04-27] MEDS: DOCUSATE SODIUM 100 MG CAPSULE PO SCH ×2 (09:25→17:09)
[2016-04-27 21:00] VITALS: BP 128/61
[2016-04-28] MEDS: FERROUS SULFATE 325 MG EC TABLET PO SCH ×2 (06:59→16:41)
[2016-04-28 08:06] VITALS: BP 98/64
[2016-04-28] MEDS: CloZAPine 100 MG RAPDIS TABLET PO SCH ×2 (09:37→16:41)
[2016-04-28] MEDS: DOCUSATE SODIUM 100 MG CAPSULE PO SCH ×2 (09:37→16:41)
[2016-04-28] MEDS: PANTOPRAZOLE SODIUM 40 MG DR TABLET PO SCH (09:37)
[2016-04-28] MEDS: DIVALPROEX SODIUM 500 MG DR TABLET PO SCH ×2 (09:37→16:41)
[2016-04-28] MEDS: MULTIVITAMINS WITH MINERALS, THERAPEUTIC TABLET PO SCH (09:37)
[2016-04-28 16:30] VITALS: BP 118/78
[2016-04-29] MEDS: FERROUS SULFATE 325 MG EC TABLET PO SCH ×2 (06:34→16:51)
[2016-04-29 09:40] VITALS: BP 130/64
[2016-04-29] MEDS: MULTIVITAMINS WITH MINERALS, THERAPEUTIC TABLET PO SCH (09:43)
[2016-04-29] MEDS: DIVALPROEX SODIUM 500 MG DR TABLET PO SCH ×2 (09:43→16:51)
[2016-04-29] MEDS: DOCUSATE SODIUM 100 MG CAPSULE PO SCH ×2 (09:43→16:50)
[2016-04-29] MEDS: PANTOPRAZOLE SODIUM 40 MG DR TABLET PO SCH (09:43)
[2016-04-29] MEDS: CloZAPine 100 MG RAPDIS TABLET PO SCH ×2 (09:44→16:50)
[2016-04-30] MEDS: FERROUS SULFATE 325 MG EC TABLET PO SCH ×2 (07:05→17:05)
[2016-04-30 09:30] VITALS: BP 94/70
[2016-04-30] MEDS: MULTIVITAMINS WITH MINERALS, THERAPEUTIC TABLET PO SCH (10:27)
[2016-04-30] MEDS: PANTOPRAZOLE SODIUM 40 MG DR TABLET PO SCH (10:27)
[2016-04-30] MEDS: DIVALPROEX SODIUM 500 MG DR TABLET PO SCH ×2 (10:27→17:00)
[2016-04-30] MEDS: DOCUSATE SODIUM 100 MG CAPSULE PO SCH ×2 (10:27→17:00)
[2016-04-30] MEDS: CloZAPine 100 MG RAPDIS TABLET PO SCH ×2 (10:29→17:05)
[2016-04-30 16:47] VITALS: BP 132/78
[2016-05-01] MEDS: FERROUS SULFATE 325 MG EC TABLET PO SCH ×2 (06:59→16:42)
[2016-05-01 08:57] VITALS: BP 108/78
[2016-05-01] MEDS: DOCUSATE SODIUM 100 MG CAPSULE PO SCH ×2 (09:58→16:41)
[2016-05-01] MEDS: MULTIVITAMINS WITH MINERALS, THERAPEUTIC TABLET PO SCH (09:58)
[2016-05-01] MEDS: PANTOPRAZOLE SODIUM 40 MG DR TABLET PO SCH (09:58)
[2016-05-01] MEDS: CloZAPine 100 MG RAPDIS TABLET PO SCH ×2 (09:58→16:41)
[2016-05-01] MEDS: DIVALPROEX SODIUM 500 MG DR TABLET PO SCH ×2 (09:59→16:41)
[2016-05-01 17:30] VITALS: BP 141/72
[2016-05-02] MEDS: FERROUS SULFATE 325 MG EC TABLET PO SCH ×2 (06:22→17:21)
[2016-05-02] MEDS: DOCUSATE SODIUM 100 MG CAPSULE PO SCH ×2 (08:34→17:20)
[2016-05-02] MEDS: MULTIVITAMINS WITH MINERALS, THERAPEUTIC TABLET PO SCH (08:34)
[2016-05-02] MEDS: DIVALPROEX SODIUM 500 MG DR TABLET PO SCH ×2 (08:34→17:20)
[2016-05-02] MEDS: PANTOPRAZOLE SODIUM 40 MG DR TABLET PO SCH (08:35)
[2016-05-02] MEDS: CloZAPine 100 MG RAPDIS TABLET PO SCH ×2 (08:35→17:20)
[2016-05-02 10:02] VITALS: BP 100/76
[2016-05-02 17:00] VITALS: BP 120/64
[2016-05-03] MEDS: FERROUS SULFATE 325 MG EC TABLET PO SCH ×2 (06:33→16:20)
[2016-05-03 06:38] LABS: BASOPHILS % (AUTO) 0.8 % (0.0-2.0); EOSINOPHILS % (AUTO) 2.4 % (1.0-6.0); HEMATOCRIT 36.7 % (41-53); HEMOGLOBIN 11.8 g/dL (13.5-17.5); LYMPHOCYTES # (AUTO) 2.1 K/uL (1.0-4.8); LYMPHOCYTES % (AUTO) 46.3 % (22.0-44.0); MEAN CORPUSCULAR HEMOGLOBIN 27.7 pg (26.0-34.0); MEAN CORPUSCULAR HGB CONC 32.2 G/dL (31.0-37.0); MEAN CORPUSCULAR VOLUME 86 fL (80-100); MONOCYTES # (AUTO) 0.1 K/uL (0.1-1.0); MONOCYTES % (AUTO) 3.1 % (2.0-9.0); NEUTROPHILS # (AUTO) 2.1 K/uL (1.8-7.7); NEUTROPHILS % (AUTO) 47.4 % (40.0-70.0); PLATELET COUNT (AUTO) 341 K/uL (150-450); RED BLOOD CELL COUNT(AUTO) 4.27 MIL/uL (4.50-5.90); RED CELL DISTRIBUTION WIDTH 13.8 % (11.5-14.5); WHITE BLOOD COUNT (AUTO) 4.5 K/uL (4.5-11.0)
[2016-05-03 08:04] VITALS: BP 113/78
[2016-05-03] MEDS: DIVALPROEX SODIUM 500 MG DR TABLET PO SCH ×2 (09:07→16:20)
[2016-05-03] MEDS: PANTOPRAZOLE SODIUM 40 MG DR TABLET PO SCH (09:07)
[2016-05-03] MEDS: DOCUSATE SODIUM 100 MG CAPSULE PO SCH ×2 (09:07→16:20)
[2016-05-03] MEDS: CloZAPine 100 MG RAPDIS TABLET PO SCH ×2 (09:08→16:20)
[2016-05-03] MEDS: MULTIVITAMINS WITH MINERALS, THERAPEUTIC TABLET PO SCH (09:08)
[2016-05-03 16:23] VITALS: BP 121/71
[2016-05-04] MEDS: FERROUS SULFATE 325 MG EC TABLET PO SCH ×2 (06:40→16:43)
[2016-05-04 08:20] VITALS: BP 99/68
[2016-05-04] MEDS: PANTOPRAZOLE SODIUM 40 MG DR TABLET PO SCH (09:47)
[2016-05-04] MEDS: DOCUSATE SODIUM 100 MG CAPSULE PO SCH ×2 (09:47→16:43)
[2016-05-04] MEDS: MULTIVITAMINS WITH MINERALS, THERAPEUTIC TABLET PO SCH (09:47)
[2016-05-04] MEDS: DIVALPROEX SODIUM 500 MG DR TABLET PO SCH ×2 (09:47→16:43)
[2016-05-04] MEDS: CloZAPine 100 MG RAPDIS TABLET PO SCH ×2 (09:47→16:43)
[2016-05-04 16:39] VITALS: BP 123/76
[2016-05-05] MEDS: FERROUS SULFATE 325 MG EC TABLET PO SCH ×2 (06:37→16:30)
[2016-05-05 08:50] VITALS: BP 110/76
[2016-05-05] MEDS: DIVALPROEX SODIUM 500 MG DR TABLET PO SCH ×2 (09:09→16:30)
[2016-05-05] MEDS: MULTIVITAMINS WITH MINERALS, THERAPEUTIC TABLET PO SCH (09:09)
[2016-05-05] MEDS: PANTOPRAZOLE SODIUM 40 MG DR TABLET PO SCH (09:09)
[2016-05-05] MEDS: DOCUSATE SODIUM 100 MG CAPSULE PO SCH ×2 (09:09→16:30)
[2016-05-05] MEDS: CloZAPine 100 MG RAPDIS TABLET PO SCH ×2 (09:10→16:30)
[2016-05-05 16:13] VITALS: BP 118/72
[2016-05-06] MEDS: FERROUS SULFATE 325 MG EC TABLET PO SCH ×2 (06:46→17:07)
[2016-05-06 09:07] VITALS: BP 110/61
[2016-05-06] MEDS: PANTOPRAZOLE SODIUM 40 MG DR TABLET PO SCH (09:45)
[2016-05-06] MEDS: DOCUSATE SODIUM 100 MG CAPSULE PO SCH ×2 (09:45→17:07)
[2016-05-06] MEDS: MULTIVITAMINS WITH MINERALS, THERAPEUTIC TABLET PO SCH (09:45)
[2016-05-06] MEDS: DIVALPROEX SODIUM 500 MG DR TABLET PO SCH ×2 (09:45→17:07)
[2016-05-06] MEDS: CloZAPine 100 MG RAPDIS TABLET PO SCH ×2 (09:45→17:07)
[2016-05-06 16:32] VITALS: BP 119/72
[2016-05-07] MEDS: FERROUS SULFATE 325 MG EC TABLET PO SCH ×2 (06:54→17:14)
[2016-05-07 09:13] VITALS: BP 101/68
[2016-05-07] MEDS: CloZAPine 100 MG RAPDIS TABLET PO SCH ×2 (09:24→17:14)
[2016-05-07] MEDS: MULTIVITAMINS WITH MINERALS, THERAPEUTIC TABLET PO SCH (09:24)
[2016-05-07] MEDS: DOCUSATE SODIUM 100 MG CAPSULE PO SCH ×2 (09:24→17:14)
[2016-05-07] MEDS: DIVALPROEX SODIUM 500 MG DR TABLET PO SCH ×2 (09:25→17:14)
[2016-05-07] MEDS: PANTOPRAZOLE SODIUM 40 MG DR TABLET PO SCH (09:25)
[2016-05-07 16:55] VITALS: BP 103/67
[2016-05-08] MEDS: FERROUS SULFATE 325 MG EC TABLET PO SCH ×2 (06:59→18:09)
[2016-05-08 09:19] VITALS: BP 124/71
[2016-05-08] MEDS: PANTOPRAZOLE SODIUM 40 MG DR TABLET PO SCH (09:39)
[2016-05-08] MEDS: MULTIVITAMINS WITH MINERALS, THERAPEUTIC TABLET PO SCH (09:39)
[2016-05-08] MEDS: DOCUSATE SODIUM 100 MG CAPSULE PO SCH ×2 (09:39→18:08)
[2016-05-08] MEDS: CloZAPine 100 MG RAPDIS TABLET PO SCH ×2 (09:39→18:09)
[2016-05-08] MEDS: DIVALPROEX SODIUM 500 MG DR TABLET PO SCH ×2 (09:39→18:09)
[2016-05-08] MEDS: FluPHENAZine DECANOATE 25 MG/ML IM SCH (09:50)
[2016-05-08 16:45] VITALS: BP 118/79
[2016-05-09] MEDS: FERROUS SULFATE 325 MG EC TABLET PO SCH ×2 (06:30→17:20)
[2016-05-09 08:59] VITALS: BP 115/68
[2016-05-09] MEDS: DIVALPROEX SODIUM 500 MG DR TABLET PO SCH ×2 (09:58→17:20)
[2016-05-09] MEDS: DOCUSATE SODIUM 100 MG CAPSULE PO SCH ×2 (09:58→17:20)
[2016-05-09] MEDS: CloZAPine 100 MG RAPDIS TABLET PO SCH ×2 (09:58→17:21)
[2016-05-09] MEDS: MULTIVITAMINS WITH MINERALS, THERAPEUTIC TABLET PO SCH (09:58)
[2016-05-09] MEDS: PANTOPRAZOLE SODIUM 40 MG DR TABLET PO SCH (09:58)
[2016-05-09 16:39] VITALS: BP 123/72
[2016-05-10] MEDS: FERROUS SULFATE 325 MG EC TABLET PO SCH ×2 (06:51→17:44)
[2016-05-10 08:04] LABS: BASOPHILS # (AUTO) 0.04 K/uL (0.00-0.20); BASOPHILS % (AUTO) 0.8 % (0.0-2.0); EOSINOPHILS % (AUTO) 4.07 % (1.0-6.0); HEMOGLOBIN 12.4 g/dL (13.5-17.5); LYMPHOCYTES # (AUTO) 1.6 K/uL (1.0-4.8); MEAN CORPUSCULAR HEMOGLOBIN 28.2 pg (26.0-34.0); MEAN CORPUSCULAR HGB CONC 33.5 G/dL (31.0-37.0); MEAN CORPUSCULAR VOLUME 84 fL (80-100); MONOCYTES # (AUTO) 0.2 K/uL (0.1-1.0); MONOCYTES % (AUTO) 3.2 % (2.0-9.0); NEUTROPHILS # (AUTO) 2.8 K/uL (1.8-7.7); NEUTROPHILS % (AUTO) 58.9 % (40.0-70.0); PLATELET COUNT (AUTO) 286 K/uL (150-450); RED BLOOD CELL COUNT(AUTO) 4.39 MIL/uL (4.50-5.90); RED CELL DISTRIBUTION WIDTH 14.2 % (11.5-14.5); WHITE BLOOD COUNT (AUTO) 4.8 K/uL (4.5-11.0)
[2016-05-10] MEDS: DOCUSATE SODIUM 100 MG CAPSULE PO SCH ×2 (09:25→17:44)
[2016-05-10] MEDS: PANTOPRAZOLE SODIUM 40 MG DR TABLET PO SCH (09:25)
[2016-05-10] MEDS: CloZAPine 100 MG RAPDIS TABLET PO SCH ×2 (09:25→17:48)
[2016-05-10] MEDS: MULTIVITAMINS WITH MINERALS, THERAPEUTIC TABLET PO SCH (09:25)
[2016-05-10] MEDS: DIVALPROEX SODIUM 500 MG DR TABLET PO SCH ×2 (09:25→17:44)
[2016-05-10 09:38] VITALS: BP 126/76
[2016-05-11] MEDS: FERROUS SULFATE 325 MG EC TABLET PO SCH ×2 (07:02→17:27)
[2016-05-11 08:07] VITALS: BP 127/72
[2016-05-11 08:40] VITALS: BP 122/72
[2016-05-11] MEDS: DIVALPROEX SODIUM 500 MG DR TABLET PO SCH ×2 (09:32→17:26)
[2016-05-11] MEDS: MULTIVITAMINS WITH MINERALS, THERAPEUTIC TABLET PO SCH (09:32)
[2016-05-11] MEDS: DOCUSATE SODIUM 100 MG CAPSULE PO SCH ×2 (09:32→17:26)
[2016-05-11] MEDS: PANTOPRAZOLE SODIUM 40 MG DR TABLET PO SCH (09:32)
[2016-05-11] MEDS: CloZAPine 100 MG RAPDIS TABLET PO SCH ×2 (09:33→17:27)
[2016-05-11 18:50] VITALS: BP 123/76
[2016-05-12] MEDS: FERROUS SULFATE 325 MG EC TABLET PO SCH ×2 (06:20→17:34)
[2016-05-12 08:24] VITALS: BP 111/73
[2016-05-12] MEDS: DOCUSATE SODIUM 100 MG CAPSULE PO SCH ×2 (09:24→17:24)
[2016-05-12] MEDS: MULTIVITAMINS WITH MINERALS, THERAPEUTIC TABLET PO SCH (09:24)
[2016-05-12] MEDS: PANTOPRAZOLE SODIUM 40 MG DR TABLET PO SCH (09:24)
[2016-05-12] MEDS: DIVALPROEX SODIUM 500 MG DR TABLET PO SCH ×2 (09:24→17:24)
[2016-05-12] MEDS: CloZAPine 100 MG RAPDIS TABLET PO SCH ×2 (09:25→17:25)
[2016-05-12 16:00] VITALS: BP 123/78
[2016-05-13] MEDS: FERROUS SULFATE 325 MG EC TABLET PO SCH ×2 (06:42→16:18)
[2016-05-13 08:55] VITALS: BP 102/64
[2016-05-13] MEDS: MULTIVITAMINS WITH MINERALS, THERAPEUTIC TABLET PO SCH (08:58)
[2016-05-13] MEDS: DOCUSATE SODIUM 100 MG CAPSULE PO SCH ×2 (08:58→16:17)
[2016-05-13] MEDS: PANTOPRAZOLE SODIUM 40 MG DR TABLET PO SCH (08:58)
[2016-05-13] MEDS: CloZAPine 100 MG RAPDIS TABLET PO SCH ×2 (08:58→16:18)
[2016-05-13] MEDS: DIVALPROEX SODIUM 500 MG DR TABLET PO SCH ×2 (08:58→16:18)
[2016-05-13 16:57] VITALS: BP 110/65
[2016-05-14] MEDS: FERROUS SULFATE 325 MG EC TABLET PO SCH (06:49)
[2016-05-14] MEDS: MULTIVITAMINS WITH MINERALS, THERAPEUTIC TABLET PO SCH (08:48)
[2016-05-14] MEDS: PANTOPRAZOLE SODIUM 40 MG DR TABLET PO SCH (08:48)
[2016-05-14] MEDS: CloZAPine 100 MG RAPDIS TABLET PO SCH (08:48)
[2016-05-14] MEDS: DIVALPROEX SODIUM 500 MG DR TABLET PO SCH (08:48)
[2016-05-14] MEDS: DOCUSATE SODIUM 100 MG CAPSULE PO SCH (08:48)
[2016-05-14] MEDS ORDERED: [UNRECOGNIZED DRUG - CODE] PO (11:59)
[2016-05-14] MEDS ORDERED: FLUD25I IM (12:00)
[2016-05-14] MEDS ORDERED: FERR-89 PO (12:02)
[2016-05-14] MEDS ORDERED: MV-M1TAB2 PO (12:02)
== END 2016-05-14 12:45 | disposition home or self-care (01) | DRG 750 ==
LOC: EMS 05:13 → UNDOADMIN 18:55 → AHU 18:55 → 3EI 01-09 16:59 → 3EC 01-23 17:30 → 3EI 04-13 19:19
PROVIDERS: ADMIT Psychiatry & Neurology Child & Adolescent Psychiatry; ATTEND Psychiatry & Neurology Psychiatry
DX: F25.0 Schizoaffective disorder, bipolar type (principal); E44.0 Moderate protein-calorie malnutrition; J44.9 Chronic obstructive pulmonary disease, unspecified; Z91.19 Patient's noncompliance with other medical treatment and regimen; I10 Essential (primary) hypertension; F17.210 Nicotine dependence, cigarettes, uncomplicated; D50.9 Iron deficiency anemia, unspecified; Z68.1 Body mass index [BMI] 19.9 or less, adult; D64.9 Anemia, unspecified; R26.9 Unspecified abnormalities of gait and mobility; K59.00 Constipation, unspecified; R32 Unspecified urinary incontinence; I25.10 Atherosclerotic heart disease of native coronary artery without angina pectoris; K21.9 Gastro-esophageal reflux disease without esophagitis; Z91.83 Wandering in diseases classified elsewhere; Z59.0 Homelessness; Z65.3 Problems related to other legal circumstances; Z71.6 Tobacco abuse counseling; Z79.899 Other long term (current) drug therapy
CPT/HCPCS: 51702; 70140; 80159; 83540; 83550; 87081; 90471; 90715; 93005; 99285; G0480; J1200; J1630; J2060; J2680; Q0162